=== PATIENT | female | born 1995 | race Caucasian/White ===

== ENCOUNTER → 2016-12-06 | Outpatient (CLI) | payer OTHER | END | disposition home or self-care (01) | LOC: LABWHC1 14:09 | PROVIDERS: ATTEND Obstetrics & Gynecology | DX: N91.2 Amenorrhea, unspecified (principal) | CPT/HCPCS: 36415; 84702 ==

== ENCOUNTER 2017-06-27 18:07 | Emergency (ER) | payer BC, OTHER ==
[2017-06-27 18:25] VITALS: BP 122/81; PULSE 97; RESP 18; TEMP 98.7
--- NOTE | 2017-06-27 18:39 | ED ---
ENT HPI - General Chief complaint: Dental/Oral Stated complaint: DENTAL PAIN Time Seen by Provider: 06/27/17 18:22 Source: patient, RN notes reviewed, old records reviewed Mode of arrival: ambulatory Limitations: no limitations - History of Present Illness Initial comments: 19-year-old female presents the ED chief complaint of bilateral lower dental pain and upper dental pain for the past 5 days. Patient has a history of severely poor dentition. She reports that her family never told her pressure teeth. She does have partial implant in her upper teeth. She does plan to see a dentist but has not had one in the area. She is a smoker. She denies any fever or chills. She denies any other associated symptoms. She reports she has been taking Motrin and Tylenol for pain but no relief. - Related Data Home Medications Medication Instructions Recorded Confirmed Dextroamphetamine/Amphetamine 20 mg PO DAILY 10/06/16 11/17/16 [Adderall] Ibuprofen [Motrin] 600 mg PO Q8HR PRN 10/06/16 11/17/16 clonazePAM [KlonoPIN] 0.5 mg PO HS 06/27/17 06/27/17 Previous Rx's Medication Instructions Recorded Penicillin V Potassium [Pen Vee K] 500 mg PO QID #40 tab 06/27/17 traMADol HCl [Ultram] 50 mg PO Q6H PRN #12 tab 06/27/17 Allergies Allergy/AdvReac Type Severity Reaction Status Date / Time resperdone AdvReac Unknown Uncoded 10/03/16 00:14 Review of Systems ROS Statement: Those systems with pertinent positive or pertinent negative responses have been documented in the HPI. ROS Other: All systems not noted in ROS Statement are negative. Past Medical History Past Medical History: No Reported History History of Any Multi-Drug Resistant Organisms: None Reported Past Surgical History: No Surgical Hx Reported Additional Past Surgical History / Comment(s): oral Past Anesthesia/Blood Transfusion Reactions: No Reported Reaction Past Psychological History: Anxiety, Bipolar Smoking Status: Current every day smoker Past Alcohol Use History: Rare Past Drug Use History: None Reported General Exam - General Exam Comments Initial Comments: 19-year-old female. No acute distress. Limitations: no limitations General appearance: alert, in no apparent distress Head exam: Present: atraumatic, normocephalic, normal inspection Eye exam: Present: normal appearance, PERRL, EOMI. Absent: scleral icterus, conjunctival injection, periorbital swelling ENT exam: Present: mucous membranes moist. Absent: normal exam, normal oropharynx (Patient has severely poor dentition. Multiple dental caries throughout all the teeth. She does have an implant for teeth 7 through 10.) Neck exam: Present: normal inspection. Absent: tenderness, meningismus, lymphadenopathy Respiratory exam: Present: normal lung sounds bilaterally. Absent: respiratory distress, wheezes, rales, rhonchi, stridor Cardiovascular Exam: Present: regular rate, normal rhythm, normal heart sounds. Absent: systolic murmur, diastolic murmur, rubs, gallop, clicks GI/Abdominal exam: Present: soft, normal bowel sounds. Absent: distended, tenderness, guarding, rebound, rigid Extremities exam: Present: normal inspection, full ROM, normal capillary refill. Absent: tenderness, pedal edema, joint swelling, calf tenderness Back exam: Present: normal inspection Neurological exam: Present: alert, oriented X3, CN II-XII intact Psychiatric exam: Present: normal affect, normal mood Skin exam: Present: warm, dry, intact, normal color. Absent: rash Course Vital Signs 06/27/17 18:21 Temperature 98.7 F Pulse Rate 97 Respiratory 18 Rate Blood Pressure 122/81 O2 Sat by Pulse 96 Oximetry Medical Decision Making - Medical Decision Making 19-year-old female presents the ED chief complaint of bilateral lower dental pain and upper dental pain for the past 5 days. Patient has a history of severely poor dentition. She reports that her family never told her pressure teeth. She does have partial implant in her upper teeth. Patient has severely poor dentition throughout her entire mouth. She has an implant on teeth #7 through 10. Discussed with patient reports a dental hygienist brushing her teeth and flossing. All her teeth are rotted decayed owing up with her dentist and will be given referrals for dentists around here. Patient agrees to treatment plan will comply. Return parameters were discussed. Disposition Clinical Impression: Dental caries, Pain, dental Disposition: HOME SELF-CARE Condition: Good Instructions: Dental Caries (ED), Toothache (ED) Additional Instructions: Patient advised to follow-up with dental clinic. Take antibiotics and recommended mouth rinses and brushing her teeth. [facility] [place] [email or web address] [address] [phone] (existing clients only) For new clients: [phone] 1st consult: $50 (includes Xrays) Usually 30% less then private dentist for visits after. [employer] Have to pay $50 for Xrays anmd rest is covered. [phone] Prescriptions: Penicillin V Potassium [Pen Vee K] 500 mg PO QID #40 tab traMADol HCl [Ultram] 50 mg PO Q6H PRN #12 tab PRN Reason: Pain Referrals: Tim Oh MD [Primary Care Provider] - 1-2 days Time of Disposition: 18:36
== END 2017-06-27 18:54 | disposition home or self-care (01) ==
LOC: EC 18:07
DX: K02.9 Dental caries, unspecified (principal); F31.9 Bipolar disorder, unspecified; F41.9 Anxiety disorder, unspecified; F17.200 Nicotine dependence, unspecified, uncomplicated; Z79.899 Other long term (current) drug therapy; Z88.8 Allergy status to other drugs, medicaments and biological substances
CPT/HCPCS: 99283

== ENCOUNTER 2017-08-15 10:04 | Emergency (ER) | payer BC, OTHER ==
[2017-08-15 10:08] VITALS: BP 127/77; PULSE 102; RESP 16; TEMP 96.9
--- NOTE | 2017-08-15 10:54 | ED ---
ENT HPI - General Chief complaint: Dental/Oral Stated complaint: Tooth Ache Time Seen by Provider: 08/15/17 10:17 Source: patient Mode of arrival: ambulatory Limitations: no limitations - History of Present Illness Initial comments: Years old female presented with right upper jaw dental pain and gum pain, it started at 10 PM last night she has ongoing dental issues for years she has lost multiple teeth and more than half of her teeth have major dental disease. She denies any fever no chills no trauma to the affected area at this point. Review of system is negative otherwise - Related Data Home Medications Medication Instructions Recorded Confirmed Dextroamphetamine/Amphetamine 20 mg PO DAILY 10/06/16 06/27/17 [Adderall] Ibuprofen [Motrin] 600 mg PO Q8HR PRN 10/06/16 06/27/17 clonazePAM [KlonoPIN] 0.5 mg PO HS 06/27/17 06/27/17 Previous Rx's Medication Instructions Recorded Penicillin V Potassium [Pen Vee K] 500 mg PO QID #40 tab 06/27/17 traMADol HCl [Ultram] 50 mg PO Q6H PRN #12 tab 06/27/17 Acetaminophen-Codeine 300-30mg 2 tab PO Q8H PRN #30 tablet 08/15/17 [Tylenol #3] Amoxicillin 500 mg PO Q8H #30 capsule 08/15/17 Allergies Allergy/AdvReac Type Severity Reaction Status Date / Time resperdone AdvReac Unknown Uncoded 08/15/17 10:08 Review of Systems ROS Statement: Those systems with pertinent positive or pertinent negative responses have been documented in the HPI. ROS Other: All systems not noted in ROS Statement are negative. Past Medical History Past Medical History: No Reported History History of Any Multi-Drug Resistant Organisms: None Reported Past Surgical History: No Surgical Hx Reported Additional Past Surgical History / Comment(s): oral Past Anesthesia/Blood Transfusion Reactions: No Reported Reaction Past Psychological History: Anxiety, Bipolar Smoking Status: Current every day smoker Past Alcohol Use History: Rare Past Drug Use History: None Reported General Exam - General Exam Comments Initial Comments: General: The patient is awake and alert, in no distress, and does not appear acutely ill. Skin: Skin is warm and dry and no rashes or lesions are noted. Eye: Pupils are equal, round and reactive to light, extra-ocular movements are intact; there is normal conjunctiva bilaterally. Ears, nose, mouth and throat: Examination of the gums and no noticed or inflammation of the gums at tooth #1 and 2 his right upper jaw in a more area, she is missing tooth 789 and 10 Neck: The neck is supple, there is no tenderness or JVD. Cardiovascular: There is a regular rate and rhythm. No murmur, rub or gallop is appreciated. Respiratory: To auscultation bilateral, no wheezing no rhonchi no distress respiratory levine noticed Gastrointestinal: Soft, non-distended, non-tender abdomen without masses or organomegaly noted. There is no rebound or guarding present. Bowel sounds are unremarkable. Back: There is no tenderness to palpation in the midline. There is no obvious deformity. Musculoskeletal: Normal ROM, no tenderness, There is no pedal edema. There is no calf tenderness or swelling. No cords were appreciated. Neurological: CN II-XII intact, Cranial nerves III through XII are intact. There are no obvious motor or sensory deficits. Coordination appears grossly intact. Speech is normal. Psychiatric: Cooperative, appropriate mood & affect, normal judgment. Limitations: no limitations Course Vital Signs 08/15/17 10:05 Temperature 96.9 F L Pulse Rate 102 H Respiratory 16 Rate Blood Pressure 127/77 O2 Sat by Pulse 100 Oximetry Disposition Clinical Impression: Pain, dental Disposition: HOME SELF-CARE Condition: Good Instructions: Toothache (ED) Additional Instructions: She is advised to see dentist as soon as possible Prescriptions: Acetaminophen-Codeine 300-30mg [Tylenol #3] 2 tab PO Q8H PRN #30 tablet PRN Reason: Pain Amoxicillin 500 mg PO Q8H #30 capsule Referrals: Tim Oh MD [Primary Care Provider] - 1-2 days
== END 2017-08-15 11:09 | disposition home or self-care (01) ==
LOC: EC 10:04
DX: K08.89 Other specified disorders of teeth and supporting structures (principal); K08.409 Partial loss of teeth, unspecified cause, unspecified class; F41.9 Anxiety disorder, unspecified; F17.200 Nicotine dependence, unspecified, uncomplicated; Z79.899 Other long term (current) drug therapy; Z88.8 Allergy status to other drugs, medicaments and biological substances; Z98.890 Other specified postprocedural states
CPT/HCPCS: 99282

== ENCOUNTER → 2017-09-02 | Outpatient (CLI) | payer BC, OTHER ==
--- NOTE | 2017-09-02 12:10 | XR ---
EXAMINATION TYPE: XR hand complete RT DATE OF EXAM: 09/02/2017 COMPARISON: NONE HISTORY: Pain TECHNIQUE: Three views are submitted. FINDINGS: The osseous structures are intact. The joint spaces are preserved and there is no acute fracture or dislocation. IMPRESSION: 1. No definite acute fracture or dislocation if symptoms persist, follow-up study in 7 to 10 days wo uld be suggested
== END | disposition home or self-care (01) ==
LOC: RADXRMAIN 11:45
PROVIDERS: ATTEND Family Medicine
DX: M79.641 Pain in right hand (principal)

== ENCOUNTER 2018-01-11 12:32 | Emergency (ER) | payer BC, OTHER ==
[2018-01-11 13:08] VITALS: TEMP 98.1
[2018-01-11] MEDS ORDERED: ACETAMINOPHEN TAB 325 MG TAB PO STA (13:25)
[2018-01-11] MEDS ORDERED: PENICILLIN VK 500MG STARTER 4 TAB BTL PO STA (13:25)
--- NOTE | 2018-01-11 13:25 | ED ---
ENT HPI - General Chief complaint: Dental/Oral Stated complaint: Tooth Ache/Facial Swelling Time Seen by Provider: 01/11/18 13:23 Source: patient Mode of arrival: ambulatory Limitations: no limitations - History of Present Illness Initial comments: 22-year-old female patient presents to the emergency department today for complaints of right upper dental pain. Patient states that she has had dental pain with the last 3 days. States that today she started have swelling to the right side of her face. Patient states that she has many cavities and broken teeth to the area. States that she needs to have her teeth removed however she is and they will not remove them. She states she has been taking Tylenol for the pain. She denies any fevers or chills. Denies any nausea or vomiting. Denies any difficulty swallowing. Patient denies any recent rash, shortness breath, chest pain, abdominal pain, diarrhea, constipation, back pain , numbness, tingling, dizziness, weakness, hematuria, dysuria, urinary urgency, urinary frequency, headache, visual changes, or any other complaints. Patient states she is 7 months and has been feeling normal movement. - Related Data Home Medications Medication Instructions Recorded Confirmed Dextroamphetamine/Amphetamine 20 mg PO DAILY 10/06/16 08/15/17 [Adderall] Ibuprofen [Motrin] 600 mg PO Q8HR PRN 10/06/16 08/15/17 clonazePAM [KlonoPIN] 0.5 mg PO HS 06/27/17 08/15/17 Anti-Depressant Unknown 1 tab PO DAILY 08/15/17 08/15/17 Aspirin 650 mg PO DAILY 08/15/17 08/15/17 Previous Rx's Medication Instructions Recorded Acetaminophen-Codeine 300-30mg 2 tab PO Q8H PRN #30 tablet 08/15/17 [Tylenol #3] Amoxicillin 500 mg PO Q8H #30 capsule 08/15/17 Penicillin V Potassium [Pen Vee K] 500 mg PO Q6H #40 tablet 01/11/18 Allergies Allergy/AdvReac Type Severity Reaction Status Date / Time risperidone Allergy Unknown Verified 01/11/18 13:09 Review of Systems ROS Statement: Those systems with pertinent positive or pertinent negative responses have been documented in the HPI. ROS Other: All systems not noted in ROS Statement are negative. Past Medical History Past Medical History: No Reported History History of Any Multi-Drug Resistant Organisms: None Reported Past Surgical History: No Surgical Hx Reported Additional Past Surgical History / Comment(s): oral Past Anesthesia/Blood Transfusion Reactions: No Reported Reaction Past Psychological History: Anxiety, Bipolar Smoking Status: Current every day smoker Past Alcohol Use History: Rare Past Drug Use History: None Reported General Exam Limitations: no limitations General appearance: alert, in no apparent distress, other (This is a well- developed, well-nourished adult female patient in no acute distress. Vital signs upon presentation are temperature 98.1F, pulse 109, respirations 20, blood pressure 118/78, pulse ox 98% on room air.) Eye exam: Present: normal appearance, PERRL, EOMI. Absent: scleral icterus, conjunctival injection, periorbital swelling ENT exam: Present: mucous membranes moist, other (Dentition is very poor with multiple cavities, right upper teeth are broken and did show extensive dental caries. There is surrounding gingival erythema, right facial swelling. No evidence of drainable abscess. No cervical lymphadenopathy.). Absent: normal exam Neck exam: Present: normal inspection. Absent: tenderness, meningismus, lymphadenopathy Respiratory exam: Present: normal lung sounds bilaterally. Absent: respiratory distress, wheezes, rales, rhonchi, stridor Cardiovascular Exam: Present: regular rate, normal rhythm, normal heart sounds. Absent: systolic murmur, diastolic murmur, rubs, gallop, clicks Course Vital Signs 01/11/18 13:06 Temperature 98.1 F Pulse Rate 109 H Respiratory 20 Rate Blood Pressure 118/78 O2 Sat by Pulse 98 Oximetry Medical Decision Making - Medical Decision Making 22-year-old female patient percents to the emergency department today with complaint of right upper dental pain and facial swelling. Physical examination did reveal extensive dental caries with gingival erythema. No evidence of drainable abscess. Patient is 7 months . heart tones were 157, performed by myself. Vital signs are stable. Patient be discharged with a prescription for penicillin. She is instructed to take Tylenol for pain control. She is instructed to do saltwater gargles and swishes. She is instructed to apply warm compresses to the outside of her face. She is instructed to follow-up with dentistry as soon as possible. She is instructed to return here immediately for any new, worsening, or concerning symptoms. She verbalizes understanding and agrees with this plan. Disposition Clinical Impression: Dental abscess Disposition: HOME SELF-CARE Condition: Good Instructions: Dental Abscess (ED), Toothache (ED) Additional Instructions: Swish with warm salt water. Use warm compresses to the outside of the face. Complete antibiotic prescription in full. Follow-up with the dentist as soon as possible. Return here immediately for any new, worsening, or concerning symptoms. Prescriptions: Penicillin V Potassium [Pen Vee K] 500 mg PO Q6H #40 tablet Referrals: None,Stated [Primary Care Provider] - 1-2 days Time of Disposition: 13:25
[2018-01-11 13:53] VITALS: BP 120/70; PULSE 92; RESP 18
== END 2018-01-11 13:55 | disposition home or self-care (01) ==
LOC: EC 12:32
DX: O99.613 Diseases of the digestive system complicating pregnancy, third trimester (principal); K04.7 Periapical abscess without sinus; K02.9 Dental caries, unspecified; O99.343 Other mental disorders complicating pregnancy, third trimester; F41.9 Anxiety disorder, unspecified; O99.333 Smoking (tobacco) complicating pregnancy, third trimester; F17.200 Nicotine dependence, unspecified, uncomplicated; Z79.82 Long term (current) use of aspirin; Z79.899 Other long term (current) drug therapy; Z88.8 Allergy status to other drugs, medicaments and biological substances; Z3A.00 Weeks of gestation of pregnancy not specified
CPT/HCPCS: 99283

== ENCOUNTER → 2018-01-22 | Outpatient (CLI) | payer BC, OTHER ==
[2018-01-22 17:35] LABS: HCT 34.2 % (34.0-46.0); HGB 10.7 gm/dL (11.4-16.0); MCH 30.6 pg (25.0-35.0); MCHC 31.2 g/dL (31.0-37.0); MCV 98.1 fL (80.0-100.0); Mean Platelet Volume 7.8; Platelet Count 265 k/uL (150-450); RBC 3.49 m/uL (3.80-5.40); RDW 12.1 % (11.5-15.5); WBC 17.7 k/uL (3.8-10.6)
== END | disposition home or self-care (01) ==
LOC: LABWHC1 16:02
PROVIDERS: ATTEND Obstetrics & Gynecology
DX: Z34.82 Encounter for supervision of other normal pregnancy, second trimester (principal); Z3A.00 Weeks of gestation of pregnancy not specified
CPT/HCPCS: 36415; 82950; 85027

== ENCOUNTER 2018-02-12 15:00 | Outpatient (CLI) | payer BC, OTHER ==
[2018-02-12 15:41] LABS: Appearance,Urine Clear (Clear); Bacteria,Urine Rare /hpf; Bilirubin,Urine Negative (Negative); Blood,Urine Negative (Negative); Color,Urine Yellow; Glucose,Urine (UA) Negative (Negative); Ketones,Urine Negative (Negative); Leukocyte Esterase,Urine Large (Negative); Mucus,Urine Few /hpf; Nitrite,Urine Negative (Negative); PH, Urine 6.5 (5.0-8.0); Protein,Urine Trace (Negative); RBC,Urine 1 /hpf (0-5); Specific Gravity,Urine 1.025 (1.001-1.035); Squamous Epithelial Cell,Urine 2 /hpf (0-4); WBC,Urine 3 /hpf (0-5)
[2018-02-12 16:27] VITALS: BP 129/74; PULSE 96; RESP 16; TEMP 97.8
--- NOTE | 2018-02-12 17:04 | P.MSEPDOC ---
Presenting Problems - Arrival Data Date of Arrival on Unit: 02/12/18 Time of Arrival on Unit: 15:00 Mode of Transport: Ambulatory - Complaint OB-Reason for Admission/Chief Complaint: Pain Comment: Suprapubic and flank pain Medical History - Information : 2 Para: 1 Term: 1 : 0 Abortions: Spontaneous or Elective: 0 Number of Living Children: 1 - Gestational Age Gestational Age by JENNIFFER (wks/days): 32 Weeks and 5 Days - History Complications: Smoker Review of Systems - Review of Systems Constitutional: No problems Breast: No problems ENT: No problems Cardiovascular: No problems Respiratory: No problems Gastrointestinal: No problems Genitourinary: Increased frequency Musculoskeletal: No problems Neurological: No problems Skin: No problems Vital Signs - Temperature Temperature: 97.8 F Temperature Source: Temporal Artery Scan - Pulse Right Sitting Brachial Pulse Rate: 96 Pulse Assessment Method: Pulse Oximetry - Respirations Respiratory Rate: 16 Oxygen Delivery Method: Room Air O2 Sat by Pulse Oximetry: 98 - Blood Pressure Right Arm Sitting Blood Pressure: 129/74 Blood Pressure Mean: 92 Blood Pressure Source: Automatic Cuff Medical Screen Scoring (Pre) - Cervical Exam Dilation: 0 cm = 0 Effacement: Exam Deferred Membranes: Intact - Uterine Contractions Frequency: N/A Duration: N/A Intensity: N/A - Maternal Vital Signs Maternal Temperature: N/A Maternal Blood Pressure: N/A Signs of Preeclampsia: N/A Maternal Respirations: N/A - Pain Assessment Pain Location and Character: Lower, Abdomen Pain Scale Used: Numeric (1 - 10) Pain Intensity: 8 Pain Management Goal: 2 Pain Description: *Acute, Cramping Pain Radiation Location: flank Pain Frequency: Constant Pain Duration: 48 Pain Duration Units: Hours Pain Behavior: Vocalization Pain Aggravating Factors: Activity - Maternal Trauma Maternal Trauma: N/A - Assessment Baseline FHR: 130 Heart Rate - NICHD Category: Category I (Normal) = 0 NST: Reactive Position: N/A - Total Score Total Score (Pre): 0 - Level of Risk Level of Risk: Low (0-5) Physician Notification (Pre) - Physician Notified Physician Notified Date: 02/12/18 Physician Notified Time: 16:05 Physician/Practitioner Notifed:: Chad Spoke With: Chad New Order Received: Yes - Notification Comment Comment: Spk c\Dr. Bonilla, advsd , 32 /, reactive NST, UA results, FFN collected, SVE closed/50/-2, firm. Not paulina. Order to edu pt on normal discomfort, comfort measures. D/C home, to follow up at next scheduled appt. Disposition - Disposition OB Disposition: Discharge to home, Written follow up instructions reviewed Discharge Date: 02/12/18 Discharge Time: 16:17 I agree with the RN Medical Screening Exam: Yes Risk & Benefit of care provided described in d/c instruction: Yes Diagnosis: RELATED CONDITIONS, UNSPECIFIED, THIRD TRIMESTER (pain consistent with movement)
== END 2018-02-12 16:17 | disposition home or self-care (01) ==
LOC: FBPOP 15:00
PROVIDERS: ATTEND Obstetrics & Gynecology
DX: O26.93 Pregnancy related conditions, unspecified, third trimester (principal); O99.333 Smoking (tobacco) complicating pregnancy, third trimester; Z3A.32 32 weeks gestation of pregnancy
CPT/HCPCS: 59025; 81001; 99213

== ENCOUNTER 2018-02-14 18:57 | Outpatient (CLI) | payer BC, OTHER ==
[2018-02-14 20:46] VITALS: BP 121/74; PULSE 92; RESP 16; TEMP 97.8
--- NOTE | 2018-02-18 08:47 | P.MSEPDOC ---
Presenting Problems - Arrival Data Date of Arrival on Unit: 02/14/18 Time of Arrival on Unit: 18:57 Mode of Transport: Wheelchair - Complaint OB-Reason for Admission/Chief Complaint: Pain Comment: pt states cramping throughout the last few days. states it became more painful today. c/o hip pain as well. Medical History - Information : 2 Para: 1 Term: 1 : 0 Abortions: Spontaneous or Elective: 0 Number of Living Children: 1 - Gestational Age Gestational Age by JENNIFFER (wks/days): 33 Weeks and 0 Days Review of Systems - Review of Systems Constitutional: No problems Breast: No problems ENT: No problems Cardiovascular: No problems Respiratory: No problems Gastrointestinal: No problems Genitourinary: No problems Musculoskeletal: No problems Neurological: No problems Skin: No problems Vital Signs - Temperature Temperature: 97.8 F Temperature Source: Oral - Pulse Right Sitting Brachial Pulse Rate: 92 Pulse Assessment Method: Automatic Cuff - Respirations Respiratory Rate: 16 Oxygen Delivery Method: Room Air O2 Sat by Pulse Oximetry: 98 - Blood Pressure Right Arm Sitting Blood Pressure: 121/74 Blood Pressure Mean: 89 Blood Pressure Source: Automatic Cuff Medical Screen Scoring (Pre) - Cervical Exam Dilation: 0 cm = 0 Membranes: Intact - Maternal Vital Signs Maternal Blood Pressure: N/A Signs of Preeclampsia: N/A Maternal Respirations: N/A - Pain Assessment Pain Location and Character: Medial, Abdomen Pain Scale Used: Numeric (1 - 10) Pain Intensity: 9 Pain Management Goal: 3 Pain Description: Cramping Pain Radiation Location: N/A Pain Frequency: Intermittent Pain Duration: 3 Pain Duration Units: Days Pain Behavior: Vocalization Pain Aggravating Factors: Activity, Contractions - Assessment Baseline FHR: 125 Heart Rate - NICHD Category: Category I (Normal) = 0 NST: Reactive - Total Score Total Score (Pre): 0 - Level of Risk Level of Risk: Low (0-5) Physician Notification (Pre) - Physician Notified Physician Notified Date: 02/14/18 Physician Notified Time: 19:50 Physician/Practitioner Notifed:: MARTIN Spoke With: MARTIN New Order Received: Yes - Notification Comment Comment: collect FFN, check cervix, if closed, d/c home. If dilated, send FFN Disposition - Disposition OB Disposition: Discharge to home Discharge Date: 02/14/18 Discharge Time: 20:10 I agree with the RN Medical Screening Exam: Yes Risk & Benefit of care provided described in d/c instruction: Yes Diagnosis: PAIN IN LEFT HIP ( related)
== END 2018-02-14 20:10 | disposition home or self-care (01) ==
LOC: FBPOP 18:57
PROVIDERS: ATTEND Obstetrics & Gynecology
DX: O26.893 Other specified pregnancy related conditions, third trimester (principal); M25.552 Pain in left hip; Z3A.33 33 weeks gestation of pregnancy
CPT/HCPCS: 59025; 99213

== ENCOUNTER 2018-03-03 19:10 | Outpatient (CLI) | payer BC, OTHER ==
[2018-03-03 19:41] VITALS: BP 115/73; PULSE 96; RESP 16; TEMP 98
--- NOTE | 2018-03-03 20:41 | P.MSEPDOC ---
Presenting Problems - Arrival Data Date of Arrival on Unit: 03/03/18 Time of Arrival on Unit: 19:10 Mode of Transport: Ambulatory - Complaint OB-Reason for Admission/Chief Complaint: Rule Out SROM, Other Comment: leaking of clear/yellow fluid since yesterday, abdominal cramping for two days, chest heaviness for a week. Medical History - Information : 2 Para: 1 Term: 1 : 0 Abortions: Spontaneous or Elective: 0 Number of Living Children: 1 - Gestational Age Gestational Age by JENNIFFER (wks/days): 35 Weeks and 3 Days - History Complications: Prior Review of Systems - Review of Systems Constitutional: No problems Breast: No problems ENT: No problems Cardiovascular: Chest pain Respiratory: No problems Gastrointestinal: No problems Genitourinary: No problems Musculoskeletal: No problems Neurological: No problems Skin: No problems Vital Signs - Temperature Temperature: 98.0 F Temperature Source: Temporal Artery Scan - Pulse Right Sitting Brachial Pulse Rate: 96 Pulse Assessment Method: Automatic Cuff - Respirations Respiratory Rate: 16 Oxygen Delivery Method: Room Air O2 Sat by Pulse Oximetry: 97 - Blood Pressure Right Arm Sitting Blood Pressure: 115/73 Blood Pressure Mean: 87 Blood Pressure Source: Automatic Cuff Medical Screen Scoring (Pre) - Cervical Exam Dilation: 0 cm = 0 Membranes: Intact - Uterine Contractions Frequency: N/A Duration: N/A Intensity: N/A - Maternal Vital Signs Maternal Temperature: N/A Maternal Blood Pressure: N/A Signs of Preeclampsia: N/A Maternal Respirations: N/A - Pain Assessment Pain Location and Character: Lower, Abdomen Pain Scale Used: Numeric (1 - 10) Pain Intensity: 8 Pain Management Goal: 3 Pain Description: Cramping Pain Radiation Location: n/a Pain Frequency: Intermittent Pain Duration: 2 Pain Duration Units: Days Pain Behavior: None Exhibited, Vocalization Pain Aggravating Factors: Activity - Assessment Baseline FHR: 130 Heart Rate - NICHD Category: Category I (Normal) = 0 NST: Reactive Position: N/A Station: N/A - Total Score Total Score (Pre): 0 - Level of Risk Level of Risk: Low (0-5) Physician Notification (Pre) - Physician Notified Physician Notified Date: 03/03/18 Physician/Practitioner Notifed:: freddy Spoke With: freddy Physician Notification (Post) - Physician Notified Physician Notified Date: 03/03/18 Physician Notified Time: 19:47 Physician/Practitioner Notified:: freddy Spoke With: freddy New Order Received: Yes - Notification Comment Comment: d/c pt home. Disposition - Disposition OB Disposition: Discharge to home Discharge Date: 03/03/18 Discharge Time: 19:51 I agree with the RN Medical Screening Exam: Yes Risk & Benefit of care provided described in d/c instruction: Yes Diagnosis: PAIN, UNSPECIFIED
== END 2018-03-03 19:51 | disposition home or self-care (01) ==
LOC: FBPOP 19:10
PROVIDERS: ATTEND Obstetrics & Gynecology
DX: O99.89 Other specified diseases and conditions complicating pregnancy, childbirth and the puerperium (principal); R10.9 Unspecified abdominal pain; Z3A.35 35 weeks gestation of pregnancy
CPT/HCPCS: 59025; 84112; 99213

== ENCOUNTER 2018-03-05 17:53 | Emergency (ER) | payer BC, OTHER ==
[2018-03-05 18:17] VITALS: BP 127/83; PULSE 69; RESP 18; TEMP 98
--- NOTE | 2018-03-05 18:28 | ED ---
General Adult HPI - General Chief complaint: Dental/Oral Stated complaint: Toothache Time Seen by Provider: 03/05/18 18:18 Source: patient, RN notes reviewed Mode of arrival: ambulatory Limitations: no limitations - History of Present Illness Initial comments: Patient 22-year-old female presented to the emergency room today with chief complaint of increased dental pain. Patient does not that she's 36 weeks . She denies any abdominal pain, vaginal bleeding or discharge. Patient states that she noticed some pain to the right upper gumline started yesterday. She does admit some pain locally around tooth #7. Patient denies any other complaints or symptoms at this time. Patient denies any recent fever, chills, shortness of breath, chest pain, back pain, abdominal pain, headaches or visual changes, or any other complaints. - Related Data Home Medications Medication Instructions Recorded Confirmed Pnv,Calcium 72/Iron/Folic Acid 1 tab PO DAILY 02/12/18 03/03/18 [ Plus Tablet] Previous Rx's Medication Instructions Recorded Penicillin V Potassium [Pen Vee K] 500 mg PO QID #40 tablet 03/05/18 Allergies Allergy/AdvReac Type Severity Reaction Status Date / Time risperidone Allergy Unknown Verified 03/05/18 18:17 Review of Systems ROS Statement: Those systems with pertinent positive or pertinent negative responses have been documented in the HPI. ROS Other: All systems not noted in ROS Statement are negative. Past Medical History Past Medical History: No Reported History History of Any Multi-Drug Resistant Organisms: None Reported Past Surgical History: No Surgical Hx Reported Additional Past Surgical History / Comment(s): oral Past Anesthesia/Blood Transfusion Reactions: No Reported Reaction Past Psychological History: Anxiety, Bipolar Smoking Status: Current every day smoker General Exam - General Exam Comments Initial Comments: General: The patient is awake and alert, in no distress, and does not appear acutely ill. Eye: Pupils are equal, round and reactive to light, extra-ocular movements are intact. No nystagmus. There is normal conjunctiva bilaterally. No signs of icterus. Ears, nose, mouth and throat: There are moist mucous membranes and no oral lesions. She does have missing tooth #8 #9. She is locally tender in the gumline above tooth #7. No sign of abscess. Some swelling to the gumline. No drainage or discharge. Neck: The neck is supple, there is no tenderness or JVD. Musculoskeletal: Normal ROM, no tenderness. Strength 5/5. Sensation intact. Pulses equal bilaterally 2+. Neurological: A&O x 3. CN II-XII intact, There are no obvious motor or sensory deficits. Coordination appears grossly intact. Speech is normal. Skin: Skin is warm and dry and no rashes or lesions are noted. Psychiatric: Cooperative, appropriate mood & affect, normal judgment. Limitations: no limitations Course Vital Signs 03/05/18 18:15 Temperature 98 F Pulse Rate 69 Respiratory 18 Rate Blood Pressure 127/83 O2 Sat by Pulse 98 Oximetry Medical Decision Making - Medical Decision Making She'll be started on antibiotics of penicillin. Patient is advised follow-up with her dentist. Advised return if any symptoms increase worsen. Disposition Clinical Impression: Dental abscess Disposition: HOME SELF-CARE Condition: Good Instructions: Dental Abscess (ED) Additional Instructions: Please use medication as discussed. Please follow-up with dentist/family doctor in the next 2 days of symptoms have not improved. Please return to emergency room if the symptoms increase or worsen or for any other concerns. Prescriptions: Penicillin V Potassium [Pen Vee K] 500 mg PO QID #40 tablet Referrals: None,Stated [Primary Care Provider] - 1-2 days Time of Disposition: 18:27
--- NOTE | 2018-03-06 06:18 | CDI ---
Documentation Clarification OP Dear Ayan Us PA-C Please provide proper documentation about . Thank you, Humberto Gates [employer] Quality Inspector If you have any questions, please contact Com[employer] at [phone] [facility]
== END 2018-03-05 18:36 | disposition home or self-care (01) ==
LOC: EC 17:53
DX: O99.613 Diseases of the digestive system complicating pregnancy, third trimester (principal); K04.7 Periapical abscess without sinus; O99.333 Smoking (tobacco) complicating pregnancy, third trimester; F17.200 Nicotine dependence, unspecified, uncomplicated; Z3A.36 36 weeks gestation of pregnancy; Z88.8 Allergy status to other drugs, medicaments and biological substances
CPT/HCPCS: 99282

== ENCOUNTER 2018-03-13 14:55 | Outpatient (CLI) | payer BC, OTHER ==
[2018-03-13 17:06] VITALS: BP 126/80; PULSE 121; RESP 18; TEMP 97.9
--- NOTE | 2018-03-17 08:39 | P.MSEPDOC ---
Presenting Problems - Arrival Data Date of Arrival on Unit: 03/13/18 Time of Arrival on Unit: 14:55 Mode of Transport: Wheelchair - Complaint OB-Reason for Admission/Chief Complaint: Possible Onset of Labor Medical History - Information : 2 Para: 1 Term: 1 : 0 Abortions: Spontaneous or Elective: 0 Number of Living Children: 1 - Gestational Age Gestational Age by JENNIFFER (wks/days): 36 Weeks and 6 Days - History Complications: Prior Review of Systems - Review of Systems Constitutional: No problems Breast: No problems ENT: No problems Cardiovascular: No problems Respiratory: No problems Gastrointestinal: No problems Genitourinary: No problems Musculoskeletal: No problems Neurological: No problems Skin: No problems Vital Signs - Temperature Temperature: 97.9 F Temperature Source: Temporal Artery Scan - Pulse Brachial Pulse Rate: 121 Pulse Assessment Method: Automatic Cuff - Respirations Respiratory Rate: 18 Oxygen Delivery Method: Room Air - Blood Pressure Right Arm Blood Pressure: 126/80 Blood Pressure Mean: 95 Blood Pressure Source: Automatic Cuff Medical Screen Scoring (Pre) - Cervical Exam Dilation: 0 cm = 0 Membranes: Intact - Uterine Contractions Frequency: N/A - Maternal Vital Signs Maternal Temperature: N/A Signs of Preeclampsia: N/A Maternal Respirations: N/A - Pain Assessment Pain Location and Character: Abdomen Pain Scale Used: Numeric (1 - 10) Pain Intensity: 9 Pain Description: Cramping Pain Frequency: Intermittent Pain Behavior: Vocalization - Assessment Baseline FHR: 135 Heart Rate - NICHD Category: Category I (Normal) = 0 NST: Reactive - Total Score Total Score (Pre): 0 Physician Notification (Pre) - Physician Notified Physician Notified Date: 03/13/18 Physician Notified Time: 16:05 Physician/Practitioner Notifed:: dr dimas Disposition - Disposition OB Disposition: Triage, Discharge to home, Written follow up instructions reviewed Discharge Date: 03/13/18 Discharge Time: 16:25 I agree with the RN Medical Screening Exam: Yes Risk & Benefit of care provided described in d/c instruction: Yes Diagnosis: FALSE LABOR BEFORE 37 COMPLETED WEEKS OF GEST, THIRD TRI
== END 2018-03-13 16:25 | disposition home or self-care (01) ==
LOC: FBPOP 14:55
PROVIDERS: ATTEND Obstetrics & Gynecology
DX: O47.03 False labor before 37 completed weeks of gestation, third trimester (principal); Z3A.36 36 weeks gestation of pregnancy
CPT/HCPCS: 59025; 99213

== ENCOUNTER 2018-03-31 06:02 | Inpatient (IN) | payer BC, OTHER ==
[2018-03-31] MEDS ORDERED: METHYLERGONOVINE 0.2 MG/ML 1 ML AMP IM PRN (06:17)
[2018-03-31] MEDS ORDERED: LIDOCAINE 1% (PF) 10 MG/ML (30 ML SDV) SQ PRN (06:17)
[2018-03-31] MEDS ORDERED: TERBUTALINE 1 MG/ML VIAL SQ PRN (06:17)
[2018-03-31] MEDS ORDERED: ceFAZolin IN SWFI 2 GM/20 ML SYRINGE IVP ONE (06:17)
[2018-03-31] MEDS ORDERED: CARBOPROST TROMETHAMINE 250 MCG/ML 1 ML AMP IM PRN (06:17)
[2018-03-31] MEDS ORDERED: OXYTOCIN 10 UNIT/ML 1 ML VIAL IM PRN (06:17)
[2018-03-31 06:27] LABS: Basophils % (A) 0 %; Eosinophils # (A) 0.3 k/uL (0-0.7); Eosinophils % (A) 2 %; HCT 36.3 % (34.0-46.0); HGB 12.3 gm/dL (11.4-16.0); Lymphocytes # (A) 3.1 k/uL (1.0-4.8); Lymphocytes % (A) 24 %; MCH 31.6 pg (25.0-35.0); MCV 92.9 fL (80.0-100.0); Mean Platelet Volume 8.6; Monocytes # (A) 0.4 k/uL (0-1.0); Monocytes % (A) 3 %; Neutrophils # (A) 9.1 k/uL (1.3-7.7); Neutrophils % (A) 70 %; Platelet Count 228 k/uL (150-450); RBC 3.91 m/uL (3.80-5.40); RDW 12.1 % (11.5-15.5); WBC 13.1 k/uL (3.8-10.6)
[2018-03-31 06:30] VITALS: BMI 26.9
[2018-03-31] MEDS: LACTATED RINGERS 1,000 ML IV SCH ×3 (06:37→20:17)
[2018-03-31] MEDS ORDERED: CITRIC ACID-SODIUM CITRATE 15 ML CUP PO ONE (07:32)
[2018-03-31] MEDS ORDERED: MORPHINE SULFATE (PF) 0.3 MG/0.3 ML SYR ONE (08:00)
[2018-03-31] MEDS ORDERED: KETOROLAC 30 MG/ML 1 ML VIAL ONE (08:00)
[2018-03-31] MEDS ORDERED: DEXAMETHASONE SOD PHOS (MDV) 100 MG/10 ML VIAL ONE (08:00)
[2018-03-31] MEDS ORDERED: OXYTOCIN 10 UNIT/ML 1 ML VIAL ONE (08:00)
[2018-03-31] MEDS ORDERED: NALBUPHINE 10 MG/ML AMPUL ONE (08:00)
[2018-03-31] MEDS ORDERED: ONDANSETRON 4 MG/2 ML VIAL ONE (08:00)
[2018-03-31] MEDS ORDERED: NALOXONE 0.4 MG/ML 1 ML VIAL IV PRN ×2 (08:17→08:43)
[2018-03-31] MEDS ORDERED: NALBUPHINE 10 MG/ML AMPUL IV PRN (08:17)
[2018-03-31] MEDS ORDERED: MORPHINE SULFATE 4 MG/ML SYRINGE IVP PRN (08:17)
[2018-03-31] MEDS ORDERED: diphenhydrAMINE 50 MG/ML 1 ML VIAL IVP PRN ×3 (08:17→08:43)
[2018-03-31] MEDS ORDERED: ONDANSETRON 4 MG/2 ML VIAL IVP PRN ×2 (08:17→08:43)
[2018-03-31] MEDS ORDERED: HYDROcodone/APAP 7.5-325MG 1 EACH TAB PO PRN (08:43)
[2018-03-31] MEDS ORDERED: diphenhydrAMINE 50 MG CAP PO PRN (08:43)
[2018-03-31] MEDS ORDERED: ACETAMINOPHEN TAB 325 MG TAB PO PRN (08:43)
[2018-03-31] MEDS ORDERED: HYDROcodone/APAP 5-325MG 1 EACH TAB PO PRN (08:43)
[2018-03-31] MEDS ORDERED: METOCLOPRAMIDE 5 MG/ML 2 ML VIAL IVP PRN (08:43)
[2018-03-31] MEDS ORDERED: ZOLPIDEM 5 MG TAB PO PRN (08:43)
[2018-03-31] MEDS ORDERED: diphenhydrAMINE 25 MG CAP PO PRN (08:43)
--- NOTE | 2018-03-31 08:46 | P.HPOB ---
History of Present Illness H&P Date: 03/31/18 Chief Complaint: Intrauterine at term with prior section Patient is a 22-year-old at 39 weeks gestation dated by 24 week ultrasound. Noted at her late visit at 21 weeks that she was actually 3 weeks ahead this ultrasound was verified at 32 weeks. Her Precis course otherwise was unremarkable and she did very well. Pertinent labs did include O + blood type, Rh antibody was negative, rubella immune, hepatitis B surface antigen/RPR/GBS all negative. She did pass her 1 hour Glucola screen. Past Medical History Past Medical History: No Reported History History of Any Multi-Drug Resistant Organisms: None Reported Past Surgical History: No Surgical Hx Reported Additional Past Surgical History / Comment(s): oral Past Anesthesia/Blood Transfusion Reactions: No Reported Reaction Past Psychological History: Anxiety, Bipolar Smoking Status: Current every day smoker Past Alcohol Use History: Rare Past Drug Use History: None Reported - Past Family History Mother Family Medical History: Congestive Heart Failure (CHF), CVA/TIA, Myocardial Infarction ([place]) Father Family Medical History: Hypertension Medications and Allergies Home Medications Medication Instructions Recorded Confirmed Type Pnv,Calcium 72/Iron/Folic Acid 1 tab PO DAILY 02/12/18 03/31/18 History [ Plus Tablet] Allergies Allergy/AdvReac Type Severity Reaction Status Date / Time risperidone Allergy Unknown Verified 03/31/18 06:15 Exam Osteopathic Statement: *. No significant issues noted on an osteopathic structural exam other than those noted in the History and Physical/Consult. - Vital Signs Vital signs: Vital Signs Temp Pulse Resp BP Pulse Ox 03/31/18 06:14 96.8 F L 84 16 127/83 96 Intake and Output 03/30/18 03/31/18 03/31/18 22:59 06:59 14:59 Other: Weight 71.214 kg - OBG Physical Exam Breast: both: normal (no masses) Abdomen: bowel sounds normal, no diffuse tenderness, no bruit present, no guarding noted, no hepatomegaly, no splenomegaly, no mass Vulva: both: normal Vagina: normal moisture, no discharge Cervix: no lesion, no discharge Uterus: normal size, normal contour Adnexa: both: normal Anus/Rectum: normal perianal skin, no rectal mass, no hemorrhoids, heme negative Results Result Diagrams: 03/31/18 06:21 Abnormal Lab Results - Last 24 Hours (Table) 03/31/18 Range/Units 06:21 WBC 13.1 H (3.8-10.6) k/uL Neutrophils # 9.1 H (1.3-7.7) k/uL Assessment and Plan Assessment: Intrauterine at term with prior section
--- NOTE | 2018-03-31 08:49 | P.OP ---
Date of Procedure: 03/31/18 Preoperative Diagnosis: Intrauterine at term: Prior section Postoperative Diagnosis: Same Procedure(s) Performed: Repeat low transverse section Anesthesia: spinal Surgeon: Hank Bonilla Band Instrument Repairer #1: Justina Macario Estimated Blood Loss (ml): 400 IV fluids (ml): 600 Urine output (ml): 125 Pathology: other (Placenta) Condition: stable Disposition: floor Operative Findings: Male scores of 8 and 9 at one and 5 minutes respectively and the weight was 5 lbs. 13 oz. Description of Procedure: Patient was taken to the operating suite where spinal anesthetic was found be adequate. She was prepped and draped in the normal sterile fashion and placed in dorsal supine position with leftward tilt. Initially a Pfannenstiel skin incision was made and this incision was then carried through to underlying layer of the fascia with a second knife. Fascia was then nicked in midline and this opening was extended laterally with Garcia scissors. Superior and inferior aspect of this incision were then grasped tented up and bluntly and sharply dissected off the rectus muscles. Rectus muscles were then divided in the midline and sharp dissection through the peritoneum was made. This opening was then extended superiorly and inferiorly with good visualization of both bowel bladder. Bladder blade was then placed and the bladder flap identified and entered with Metzenbaum scissors and carried across face uterus with Metzenbaum scissors and bluntly dissected out of the operative field. Knife was then used to incise uterus this opening was then fully opened with hemostat and then extended bluntly. Head was then atraumatically delivered and mouth nares were bulb suctioned. Shoulders were easily delivered followed by the remainder the baby umbilical cord was then clamped cut usual fashion an nursery personnel was present to assume care. Placenta was then delivered intact and Pitocin was added to the IV. Uterus was then exteriorized cleared of clots and debris and closed in 2 layers with 0 Vicryl suture. Blood and debris was then suctioned from the posterior cul-de-sac and uterus was reinserted into the abdomen. Peritoneal layer was then closed [place] suture fascial layer was closed with 0 Vicryl suture a layer of 3-0 Vicryl was placed in the subcuticular tissues and the skin was closed with 3-0 Vicryl. Sponge, lap, needle counts were all correct 2. Patient was then taken to the recovery room in stable and satisfactory condition.
[2018-03-31] MEDS: KETOROLAC 30 MG/ML 1 ML VIAL IVP SCH ×2 (14:33→23:45)
[2018-03-31] MEDS: SENNOSIDES-DOCUSATE SODIUM 1 EACH TAB PO SCH (20:18)
[2018-04-01] MEDS: LACTATED RINGERS 1,000 ML IV SCH (00:54)
[2018-04-01] MEDS: IBUPROFEN 600 MG TAB PO PRN ×4 (06:31→23:35)
[2018-04-01] MEDS: KETOROLAC 30 MG/ML 1 ML VIAL IVP SCH (06:39)
--- NOTE | 2018-04-01 07:45 | P.PNOBGPC ---
Subjective - Subjective Principal diagnosis: Postop day 1 Interval history: Doing very well. Involuting, voiding, and she is tolerating her diet. Patient reports: Reports appetite normal, Reports voiding normally, Reports pain well controlled, Reports ambulating normally : in NICU Objective - Vital Signs Latest vital signs: Vital Signs Temp Pulse Resp BP Pulse Ox 04/01/18 05:57 16 97 04/01/18 04:00 98.5 F 77 16 124/74 98 04/01/18 02:00 16 97 04/01/18 00:00 98.1 F 82 16 136/85 97 03/31/18 22:00 77 14 97 03/31/18 20:00 98.1 F 83 16 125/72 98 03/31/18 18:25 16 03/31/18 17:00 16 03/31/18 16:00 98.1 F 71 16 128/94 97 03/31/18 15:00 98.1 F 71 16 128/94 97 03/31/18 13:17 99 03/31/18 13:00 16 99 03/31/18 12:00 97.7 F 64 16 133/90 99 03/31/18 11:17 16 99 03/31/18 10:45 73 16 123/86 99 03/31/18 10:15 59 L 16 124/84 99 03/31/18 09:45 71 16 125/89 98 03/31/18 09:30 73 16 128/89 99 03/31/18 09:17 16 98 03/31/18 09:15 67 16 128/83 98 03/31/18 09:00 71 16 132/82 98 03/31/18 08:45 97.4 F L 81 16 120/73 97 03/31/18 08:17 16 Intake and Output 03/31/18 04/01/18 04/01/18 22:59 06:59 14:59 Intake Total 2000 Output Total 3000 Balance -1000 Intake: Intake, IV Titration 1000 Amount Lactated Ringers 1,000 ml 1000 @ 125 mls/hr IV .Q8H [facility] Rx#:[id number] Oral 1000 Output: Urine 3000 Uretheral (Jacobs) 1250 Other: # Voids 1 1 - Exam Lungs: bilateral: normal Chest: Normal S1, Normal S2 Extremities: Present: normal Abdomen: Present: normal appearance, soft. Absent: distention, tenderness Incision: Present: normal, dry, intact Uterus: Present: normal, firm
[2018-04-01 08:01] LABS: Basophils % (A) 0 %; Eosinophils # (A) 0.3 k/uL (0-0.7); Eosinophils % (A) 2 %; HCT 28.6 % (34.0-46.0); HGB 10.4 gm/dL (11.4-16.0); Lymphocytes # (A) 3.3 k/uL (1.0-4.8); Lymphocytes % (A) 21 %; MCH 33.9 pg (25.0-35.0); MCHC 36.3 g/dL (31.0-37.0); MCV 93.3 fL (80.0-100.0); Mean Platelet Volume 9.2; Monocytes # (A) 0.8 k/uL (0-1.0); Monocytes % (A) 5 %; Neutrophils # (A) 11.1 k/uL (1.3-7.7); Neutrophils % (A) 71 %; Platelet Count 226 k/uL (150-450); RBC 3.07 m/uL (3.80-5.40); RDW 11.8 % (11.5-15.5); WBC 15.7 k/uL (3.8-10.6)
[2018-04-01] MEDS: SENNOSIDES-DOCUSATE SODIUM 1 EACH TAB PO SCH ×2 (10:06→20:22)
--- NOTE | 2018-04-01 13:32 | P.PN ---
Progress Note - Text Progress Note Date: 04/01/18 Postoperative day 1 status post section under spinal anesthesia, and intrathecal morphine given for postoperative analgesia, patient doing well, there is no paresthesia related complications, further management as per her primary team. promote early emulation.
[2018-04-01] MEDS ORDERED: NICOTINE 14MG/24HR PATCH TRANSDERM STA (20:50)
--- NOTE | 2018-04-02 07:34 | P.DS ---
Providers Date of admission: 03/31/18 06:02 Expected date of discharge: 04/02/18 Attending physician: Hank Bonilla Primary care physician: Stated None Hospital Course: Patient is doing overall well. She is ambulating, voiding, and she is tolerating her diet. She voices no complaints. Vital signs are stable and afebrile. Heart regular, lungs clear, extremities are without pain. Assessment postop day 2. Plan discharged home follow up with me in 1 week. Prescription for Sweet Water and Motrin has been provided and she will see me again in 1 week. All other questions are answered for her at this time and she is stable for discharge this time. Patient Condition at Discharge: Good Plan - Discharge Summary New Discharge Prescriptions: New HYDROcodone/APAP 5-325MG [Sweet Water 5-325] 1 tab PO Q4HR PRN #20 tab PRN Reason: Pain Ibuprofen [Motrin] 600 mg PO Q6HR PRN #30 tab PRN Reason: Pain No Action Pnv,Calcium 72/Iron/Folic Acid [ Plus Tablet] 1 tab PO DAILY Discharge Medication List Pnv,Calcium 72/Iron/Folic Acid [ Plus Tablet] 1 tab PO DAILY 02/12/18 [ History] HYDROcodone/APAP 5-325MG [Sweet Water 5-325] 1 tab PO Q4HR PRN #20 tab 04/02/18 [Rx] Ibuprofen [Motrin] 600 mg PO Q6HR PRN #30 tab 04/02/18 [Rx] Follow up Appointment(s)/Referral(s): Hank Bonilla DO [Doctor of Osteopathic Medicine] - 1 Week Activity/Diet/Wound Care/Special Instructions: No heavy lifting, limit stairs and driving and pelvic rest. If any high temperatures, heavy bleeding, or severe pain call my office Discharge Disposition: HOME SELF-CARE
[2018-04-02] MEDS: SENNOSIDES-DOCUSATE SODIUM 1 EACH TAB PO SCH (08:00)
[2018-04-02 13:40] VITALS: BP 134/78; PULSE 92; RESP 18; TEMP 98.2
== END 2018-04-02 11:45 | disposition home or self-care (01) | DRG 766 ==
LOC: 4FBP 06:02
PROVIDERS: ADMIT Obstetrics & Gynecology; ATTEND Obstetrics & Gynecology
PROC: 10D00Z1 Extraction of Products of Conception, Low, Open Approach (ICD-10-PCS; principal; 2018-03-31 08:00)
DX: O34.211 Maternal care for low transverse scar from previous cesarean delivery (principal); Z37.0 Single live birth; F17.200 Nicotine dependence, unspecified, uncomplicated; Z3A.39 39 weeks gestation of pregnancy; O99.334 Smoking (tobacco) complicating childbirth; Z88.8 Allergy status to other drugs, medicaments and biological substances
CPT/HCPCS: 85025; 88307

== ENCOUNTER 2018-08-27 18:39 | Emergency (ER) | payer BC, OTHER ==
[2018-08-27 18:49] VITALS: BP 123/86; PULSE 86; RESP 18; TEMP 98.2
--- NOTE | 2018-08-27 19:05 | ED ---
Upper Extremity HPI - General Chief Complaint: Extremity Injury, Upper Stated Complaint: rt hand injury Time Seen by Provider: 08/27/18 18:54 Source: patient, RN notes reviewed Mode of arrival: ambulatory Limitations: no limitations - History of Present Illness Initial Comments: 22-year-old female presents emergency Department with chief complaint of Right hand injury. Patient states that she tripped over a toy striking a wall pain. Patient states that she has pain from the MCP region to the distal tip of her fifth digit. She is [id number]. Patient states she is able to flex her finger but causes discomfort. - Related Data Home Medications Medication Instructions Recorded Confirmed Pnv,Calcium 72/Iron/Folic Acid 1 tab PO DAILY 02/12/18 03/31/18 [ Plus Tablet] Previous Rx's Medication Instructions Recorded HYDROcodone/APAP 5-325MG [[place] 1 tab PO Q4HR PRN #20 tab 04/02/18 5-325] Ibuprofen [Motrin] 600 mg PO Q6HR PRN #30 tab 04/02/18 Allergies Allergy/AdvReac Type Severity Reaction Status Date / Time risperidone Allergy Unknown Verified 08/27/18 18:49 Review of Systems ROS Statement: Those systems with pertinent positive or pertinent negative responses have been documented in the HPI. ROS Other: All systems not noted in ROS Statement are negative. Past Medical History Past Medical History: No Reported History Additional Past Medical History / Comment(s): migraines History of Any Multi-Drug Resistant Organisms: None Reported Past Surgical History: Section Additional Past Surgical History / Comment(s): oral Past Anesthesia/Blood Transfusion Reactions: No Reported Reaction Past Psychological History: Anxiety, Bipolar Smoking Status: Current every day smoker Past Alcohol Use History: None Reported Past Drug Use History: None Reported - Past Family History Mother Family Medical History: Congestive Heart Failure (CHF), CVA/TIA, Myocardial Infarction ([place]) Father Family Medical History: Hypertension General Exam Limitations: no limitations General appearance: alert, in no apparent distress Head exam: Present: atraumatic, normocephalic, normal inspection Respiratory exam: Present: normal lung sounds bilaterally. Absent: respiratory distress, wheezes, rales, rhonchi, stridor Cardiovascular Exam: Present: regular rate, normal rhythm, normal heart sounds. Absent: systolic murmur, diastolic murmur, rubs, gallop, clicks Extremities exam: Present: other (Right hand there is ecchymosis noted from the MCP to the PIP there is no obvious deformity patient has decreased range of motion second pain there is tenderness with palpation over the MCP) Skin exam: Present: warm, dry, intact, normal color. Absent: rash Course Vital Signs 08/27/18 18:46 Temperature 98.2 F Pulse Rate 86 Respiratory 18 Rate Blood Pressure 123/86 O2 Sat by Pulse 99 Oximetry Medical Decision Making - Medical Decision Making 22-year-old female presented emergency department for right hand fifth digit injury. X-rays were obtained no acute fracture. Patient has a right finger sprain. Patient was given a finger splint for pain control and will take over- the-counter Tylenol Motrin. Return parameters were discussed. Disposition Clinical Impression: Finger sprain Disposition: HOME SELF-CARE Condition: Stable Instructions: Finger Sprain (ED) Additional Instructions: Please return to the Emergency Department if symptoms worsen or any other concerns. Is patient prescribed a controlled substance at d/c from ED?: No Referrals: Ramya Brown MD [Primary Care Provider] - 1-2 days Time of Disposition: 19:22
--- NOTE | 2018-08-27 19:47 | XR ---
EXAMINATION TYPE: XR hand complete RT DATE OF EXAM: 08/27/2018 COMPARISON: 09/02/2017 HISTORY: Pain middle finger TECHNIQUE: 3 views FINDINGS: I see no fracture nor dislocation. Joint spaces are normal. Metacarpals are intact. IMPRESSION: Mild soft tissue swelling around the PIP joint of the little finger. No fracture.
== END 2018-08-27 19:28 | disposition home or self-care (01) ==
LOC: EC 18:39
DX: S63.614A Unspecified sprain of right ring finger, initial encounter (principal); F17.200 Nicotine dependence, unspecified, uncomplicated; Z88.8 Allergy status to other drugs, medicaments and biological substances; W22.8XXA Striking against or struck by other objects, initial encounter; Y92.009 Unspecified place in unspecified non-institutional (private) residence as the place of occurrence of the external cause
CPT/HCPCS: 99283

== ENCOUNTER 2018-12-25 22:48 | Emergency (ER) | payer BC, OTHER ==
[2018-12-25] MEDS ORDERED: IBUPROFEN 800 MG TAB PO STA (23:09)
[2018-12-25] MEDS ORDERED: PENICILLIN VK 500MG STARTER 4 TAB BTL PO STA (23:09)
--- NOTE | 2018-12-25 23:22 | ED ---
ENT HPI - General Source: patient Mode of arrival: ambulatory Limitations: no limitations <Jessika Riojas - Last Filed: 12/26/18 01:54> <Miesha Mcallister - Last Filed: 12/29/18 00:35> - General Chief complaint: Dental/Oral Stated complaint: Dental Pain Time Seen by Provider: 12/25/18 22:52 - History of Present Illness Initial comments: 23-year-old female who denies past medical history presenting today for chief complaint of left-sided tooth pain. Patient states she has both upper and lower left-sided dental pain. She denies facial swelling. Patient states she has been cracked teeth and black tea. She denies any fever, chills, night sweats. Patient denies a swelling of the neck, tongue or below tongue. Patient denies any trauma to the mouth or dentition. Remainder review of systems negative, patient denies any recent shortness of breath, chest pain, back pain, abdominal pain, nausea or vomiting, numbness or tingling, dysuria or hematuria, constipation or diarrhea, headaches or visual changes, or any other complaints. (Jessika Riojas) - Related Data Previous Rx's Medication Instructions Recorded Ibuprofen 800 mg PO Q8H PRN 7 Days #21 tablet 12/25/18 Penicillin V Potassium [Pen Vee K] 500 mg PO QID 7 Days #28 tablet 12/25/18 Allergies Allergy/AdvReac Type Severity Reaction Status Date / Time risperidone Allergy Unknown Verified 12/25/18 23:04 Review of Systems ROS Other: All systems not noted in ROS Statement are negative. <Jessika Riojas - Last Filed: 12/26/18 01:54> ROS Other: All systems not noted in ROS Statement are negative. <Miesha Mcallister - Last Filed: 12/29/18 00:35> ROS Statement: Those systems with pertinent positive or pertinent negative responses have been documented in the HPI. Past Medical History Past Medical History: No Reported History Additional Past Medical History / Comment(s): migraines History of Any Multi-Drug Resistant Organisms: None Reported Past Surgical History: Section Additional Past Surgical History / Comment(s): oral Past Anesthesia/Blood Transfusion Reactions: No Reported Reaction Past Psychological History: Anxiety, Bipolar Smoking Status: Current every day smoker Past Alcohol Use History: Rare Past Drug Use History: None Reported - Past Family History Mother Family Medical History: Congestive Heart Failure (CHF), CVA/TIA, Myocardial Infarction ([place]) Father Family Medical History: Hypertension <Jessika Riojas - Last Filed: 12/26/18 01:54> General Exam Limitations: no limitations <Jessika Riojas - Last Filed: 12/26/18 01:54> <Miesha Mcallister - Last Filed: 12/29/18 00:35> - General Exam Comments Initial Comments: General: The patient is awake and alert, in no distress, and does not appear acutely ill. Eye: Pupils are equal, round and reactive to light, extra-ocular movements are intact. No nystagmus. There is normal conjunctiva bilaterally. No signs of icterus. Ears, nose, mouth and throat: There are moist mucous membranes and no oral lesions. Patient's overall poor dentition, every tooth has decay, multiple cracked teeth. tooth #32 cracked. No areas of fluctuance. All teeth painful to percussion. No swelling below tongue or under the angle of the mandible. No anterior cervical lymphadenopathy. Neck: The neck is supple, there is no tenderness or JVD. Cardiovascular: There is a regular rate and rhythm. No murmur, rub or gallop is appreciated. Respiratory: Lungs are clear to auscultation, respirations are non-labored, breath sounds are equal. No wheezes, stridor, rales, or rhonchi. Musculoskeletal: Normal ROM, no tenderness. Strength 5/5. Sensation intact. Pulses equal bilaterally 2+. Neurological: A&O x 3. CN II-XII intact, There are no obvious motor or sensory deficits. Coordination appears grossly intact. Speech is normal. Skin: Skin is warm and dry and no rashes or lesions are noted. Psychiatric: Cooperative, appropriate mood & affect, normal judgment. (Jessika Riojas) Vital Signs 12/25/18 12/25/18 22:50 23:38 Temperature 97.8 F 98.6 F Pulse Rate 82 81 Respiratory 20 18 Rate Blood Pressure 122/80 116/77 O2 Sat by Pulse 100 98 Oximetry Medical Decision Making <Jessika Riojas - Last Filed: 12/26/18 01:54> <Miesha Mcallister - Last Filed: 12/29/18 00:35> - Medical Decision Making 23-year-old overall poor dentition. There is no evidence of obvious dental abscess. Differential diagnosis pulpitis versus periapical abscess. Patient prescribed Penicillin VK for infection prophylaxis/possible treatment. Patient denies any ALLERGIES to medications. No evidence concerning for Cleve angina at this time. No systemic sign of infection. Negative ROS is negative. Patient will be discharged with ibuprofen 800 for pain management. Patient is agreeable plan discharge. I discussed the importance of extraction of affected teeth. Patient verbalized understanding. Return parameters discussed at length the patient who verbalized understanding. (Jessika Riojas) I was available for consultation in the emergency department. The history and physical exam were done by the Midlevel Provider. Medical decision making was done by the Midlevel Provider. The Midlevel Provider did not contact me for this patient's care. I was not directly involved in this patient's care. (Miesha Mcallister) Disposition Is patient prescribed a controlled substance at d/c from ED?: No Time of Disposition: 23:21 <Jessika Riojas - Last Filed: 12/26/18 01:54> <Miesha Mcallister - Last Filed: 12/29/18 00:35> Clinical Impression: Pain, dental Disposition: HOME SELF-CARE Condition: Good Instructions (If sedation given, give patient instructions): Dental Abscess (ED ), Dental Caries (ED) Prescriptions: Ibuprofen 800 mg PO Q8H PRN 7 Days #21 tablet PRN Reason: Pain Penicillin V Potassium [Pen Vee K] 500 mg PO QID 7 Days #28 tablet Referrals: Ramya Brown MD [Primary Care Provider] - 1-2 days Bobby Moran DDS [STAFF PHYSICIAN] - 1-2 days
[2018-12-25 23:39] VITALS: BP 116/77; PULSE 81; RESP 18; TEMP 98.6
== END 2018-12-25 23:38 | disposition home or self-care (01) ==
LOC: EC 22:48
DX: K08.89 Other specified disorders of teeth and supporting structures (principal); F17.200 Nicotine dependence, unspecified, uncomplicated; Z88.8 Allergy status to other drugs, medicaments and biological substances
CPT/HCPCS: 99282

== ENCOUNTER 2019-07-27 21:39 | Emergency (ER) | payer BC, OTHER ==
[2019-07-27 21:52] VITALS: TEMP 97.8
[2019-07-27] MEDS ORDERED: SODIUM CHLORIDE 0.9% 500 ML 500 ML IV STA (22:26)
[2019-07-27] MEDS ORDERED: IBUPROFEN 600 MG TAB PO STA (22:26)
[2019-07-27 22:50] LABS: Appearance,Urine Clear (Clear); Basophils # (A) 0.1 k/uL (0-0.2); Basophils % (A) 1 %; Bilirubin,Urine Negative (Negative); Blood,Urine Negative (Negative); Color,Urine Light Yellow; Eosinophils % (A) 7 %; Glucose,Urine (UA) Negative (Negative); HCT 45.4 % (34.0-46.0); HGB 14.9 gm/dL (11.4-16.0); Ketones,Urine Negative (Negative); Leukocyte Esterase,Urine Negative (Negative); Lymphocytes # (A) 2.9 k/uL (1.0-4.8); Lymphocytes % (A) 20 %; MCHC 32.7 g/dL (31.0-37.0); MCV 94.7 fL (80.0-100.0); Mean Platelet Volume 8.5; Monocytes # (A) 0.5 k/uL (0-1.0); Monocytes % (A) 3 %; Neutrophils # (A) 10.4 k/uL (1.3-7.7); Neutrophils % (A) 69 %; Nitrite,Urine Negative (Negative); Platelet Count 243 k/uL (150-450); Protein,Urine Negative (Negative); RBC 4.79 m/uL (3.80-5.40); RDW 12.7 % (11.5-15.5); Specific Gravity,Urine 1.003 (1.001-1.035); Urobilinogen,Urine <2.0 mg/dL (<2.0)
[2019-07-27 22:59] LABS: ALT 10 U/L (9-52); AST 14 U/L (14-36); African American GFR (CKD) >90 (>60 ml/min/1.73 sqM); Albumin 3.3 g/dL (3.5-5.0); Alcohol <10 mg/dL; Alkaline Phosphatase 62 U/L (38-126); Anion Gap 8 mmol/L; Blood Urea Nitrogen 7 mg/dL (7-17); Calcium 9.1 mg/dL (8.4-10.2); Carbon Dioxide 21 mmol/L (22-30); Chloride 110 mmol/L (98-107); Glucose 95 mg/dL (74-99); Potassium 3.8 mmol/L (3.5-5.1); Sodium 139 mmol/L (137-145); Total Bilirubin 0.9 mg/dL (0.2-1.3); Total Protein 5.6 g/dL (6.3-8.2)
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
[2019-07-27 23:11] LABS: Partial Thromboplastin Time 26.6 sec (22.0-30.0); Prothrombin Time 10.9 sec (9.0-12.0)
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
--- NOTE | 2019-07-28 00:48 | CT ---
EXAM: CT Abdomen and Pelvis With Intravenous Contrast CLINICAL HISTORY: ITS.REASON CT Reason: Pain TECHNIQUE: Axial computed tomography images of the abdomen and pelvis with intravenous contrast. This CT exam was performed using one or more of the following dose reduction techniques: automated exposure control, adjustment of the mA and/or kV according to patient size, and/or use of iterative reconstruction technique. COMPARISON: No relevant prior studies available. FINDINGS: Lung bases: Unremarkable. No mass. No consolidation. ABDOMEN: Liver: Unremarkable. No mass. Gallbladder and bile ducts: No abnormal ductal dilation or stones. Pancreas: Unremarkable. No mass. No ductal dilation. Spleen: Unremarkable. No splenomegaly. Adrenals: Unremarkable. No mass. Kidneys and ureters: Unremarkable. No solid mass. No hydronephrosis. Stomach and bowel: No obstruction. No mucosal thickening. PELVIS: Appendix: No findings to suggest acute appendicitis. Bladder: Unremarkable. No mass. Reproductive: 3.3 cm right adnexal cyst. ABDOMEN and PELVIS: Intraperitoneal space: Unremarkable. No free air. No significant fluid collection. Bones/joints: No acute fracture. No dislocation. Soft tissues: Unremarkable. Vasculature: No abdominal aortic aneurysm. Lymph nodes: Unremarkable. No enlarged lymph nodes. IMPRESSION: 3.3 cm right adnexal cyst.
[2019-07-28 01:51] VITALS: BP 122/84; PULSE 83; RESP 18
== END 2019-07-28 01:59 | disposition home or self-care (01) ==
LOC: EC 21:39
DX: S30.1XXA Contusion of abdominal wall, initial encounter (principal); F41.9 Anxiety disorder, unspecified; F31.9 Bipolar disorder, unspecified; F17.200 Nicotine dependence, unspecified, uncomplicated; Z79.899 Other long term (current) drug therapy; Z88.8 Allergy status to other drugs, medicaments and biological substances; V03.90XA Pedestrian on foot injured in collision with car, pick-up truck or van, unspecified whether traffic or nontraffic accident, initial encounter; Y93.01 Activity, walking, marching and hiking; Y92.410 Unspecified street and highway as the place of occurrence of the external cause
CPT/HCPCS: 36415; 93005; 86900; 86901; 80053; 84484; 85025; 85610; 85730; 86850; 81003; 81025; 80320; 72170; 71045; 74177; 99284; 96360; Q9967

== ENCOUNTER 2019-11-25 09:37 | Emergency (ER) | payer BC, OTHER ==
[2019-11-25 10:12] VITALS: BP 149/91; PULSE 83; RESP 18; TEMP 97.9
--- NOTE | 2019-11-25 11:08 | ED ---
ENT HPI - General Chief complaint: Dental/Oral Stated complaint: Dental pain Time Seen by Provider: 11/25/19 10:58 Source: patient, RN notes reviewed, old records reviewed Mode of arrival: ambulatory Limitations: no limitations - History of Present Illness Initial comments: Patient is a 23-year-old female who presents emergency Department stay for evalu ation for concern for dental pain. She reports that she has poor dentition. She states that she does not have an appointment with a dentist at this time. Patient states that she's had no fevers or chills. She states that she's had worsening pain over the past 4 days. - Related Data Home Medications Medication Instructions Recorded Confirmed ALPRAZolam [Xanax] 0.25 mg PO HS PRN 07/27/19 07/27/19 Atomoxetine HCl [Strattera] 25 mg PO DAILY 07/27/19 07/27/19 SUMAtriptan SUCCINATE [Imitrex] 50 mg PO DAILY PRN 07/27/19 07/27/19 Previous Rx's Medication Instructions Recorded Penicillin V Potassium [Pen Vee K] 500 mg PO QID #40 tablet 11/25/19 Allergies Allergy/AdvReac Type Severity Reaction Status Date / Time risperidone Allergy Unknown Verified 07/27/19 22:38 Review of Systems ROS Statement: Those systems with pertinent positive or pertinent negative responses have been documented in the HPI. ROS Other: All systems not noted in ROS Statement are negative. Past Medical History Past Medical History: No Reported History Additional Past Medical History / Comment(s): migraines History of Any Multi-Drug Resistant Organisms: None Reported Past Surgical History: Section Additional Past Surgical History / Comment(s): oral Past Anesthesia/Blood Transfusion Reactions: No Reported Reaction Past Psychological History: Anxiety, Bipolar Smoking Status: Current every day smoker Past Alcohol Use History: Rare Past Drug Use History: None Reported - Past Family History Mother Family Medical History: Congestive Heart Failure (CHF), CVA/TIA, Myocardial Infarction ([place]) Father Family Medical History: Hypertension General Exam - General Exam Comments Initial Comments: 23 old female. No distress. Limitations: no limitations General appearance: alert, in no apparent distress Head exam: Present: atraumatic, normocephalic, normal inspection Eye exam: Present: normal appearance, PERRL, EOMI. Absent: scleral icterus, conjunctival injection, periorbital swelling ENT exam: Present: normal exam, mucous membranes moist, other (Patient has very poor dentition. Multiple caries. Missing teeth 7910. Patient has cavities over 13 and 14 and 15. No drainable abscess at this time.) Neck exam: Present: normal inspection. Absent: tenderness, meningismus, lymphadenopathy Respiratory exam: Present: normal lung sounds bilaterally. Absent: respiratory distress, wheezes, rales, rhonchi, stridor Cardiovascular Exam: Present: regular rate, normal rhythm, normal heart sounds. Absent: systolic murmur, diastolic murmur, rubs, gallop, clicks GI/Abdominal exam: Present: soft Extremities exam: Present: normal inspection, full ROM, normal capillary refill. Absent: tenderness, pedal edema, joint swelling, calf tenderness Back exam: Present: normal inspection Neurological exam: Present: alert, oriented X3, CN II-XII intact Psychiatric exam: Present: normal affect, normal mood Skin exam: Present: warm, dry, intact, normal color. Absent: rash Course Vital Signs 11/25/19 10:09 Temperature 97.9 F Pulse Rate 83 Respiratory 18 Rate Blood Pressure 149/91 O2 Sat by Pulse 100 Oximetry Medical Decision Making - Medical Decision Making 23-year-old female with severe poor dentition. His multiple missing teeth and multiple dental caries. She points of left upper dental pain. At this time patient's advised to be placed on penicillin, and will give Patient once her proper pain medication. Discussion is follow-up with dentist in proper dental hygiene. Disposition Clinical Impression: Dental caries, Pain, dental Disposition: HOME SELF-CARE Condition: Stable Instructions (If sedation given, give patient instructions): Toothache (ED) Additional Instructions: [facility] [id number] [place] [address] [phone] (existing clients only) For new clients: [phone] 1st consult: $50 (includes Xrays) Usually 30% less then private dentist for visits after. [employer] Have to pay $50 for Xrays anmd rest is covered. [phone] Prescriptions: Penicillin V Potassium [Pen Vee K] 500 mg PO QID #40 tablet Is patient prescribed a controlled substance at d/c from ED?: No Referrals: Ramya Brown MD [Primary Care Provider] - 1-2 days Time of Disposition: 11:09
[2019-11-25] MEDS ORDERED: ACET/COD 300 MG/30 MG STARTER PACK 6 TAB BTL PO STA (11:10)
[2019-11-25] MEDS ORDERED: IBUPROFEN 600 MG STARTER PACK 4 TAB BTL PO STA (11:10)
[2019-11-25] MEDS ORDERED: PENICILLIN VK 500MG STARTER 4 TAB BTL PO STA (11:10)
== END 2019-11-25 11:25 | disposition home or self-care (01) ==
LOC: EC 09:37
DX: K02.9 Dental caries, unspecified (principal); K08.409 Partial loss of teeth, unspecified cause, unspecified class; F17.200 Nicotine dependence, unspecified, uncomplicated; Z88.8 Allergy status to other drugs, medicaments and biological substances; Z79.899 Other long term (current) drug therapy
CPT/HCPCS: 99283

== ENCOUNTER 2019-12-08 18:19 | Emergency (ER) | payer BC, OTHER ==
[2019-12-08 19:06] VITALS: TEMP 98.3
[2019-12-08] MEDS ORDERED: ACET/COD 300 MG/30 MG STARTER PACK 6 TAB BTL PO STA (20:02)
[2019-12-08] MEDS ORDERED: PENICILLIN V POTASSIUM 250 MG TAB PO STA (20:02)
--- NOTE | 2019-12-08 20:03 | ED ---
ENT HPI - General Chief complaint: Dental/Oral Stated complaint: dental pain Time Seen by Provider: 12/08/19 19:46 Source: patient, RN notes reviewed, old records reviewed Mode of arrival: ambulatory Limitations: no limitations - History of Present Illness Initial comments: 24 year old female with dental caries and dental pain. She was seen on [place] for similar complaints. PAtient reports she finished antibiotics. PAtient states has no fevers or chills. She states that she has no trismus. She denies sorethroat or abdominal pain. MD complaint: tooth pain - Related Data Home Medications Medication Instructions Recorded Confirmed ALPRAZolam [Xanax] 0.25 mg PO HS PRN 07/27/19 07/27/19 Atomoxetine HCl [Strattera] 25 mg PO DAILY 07/27/19 07/27/19 SUMAtriptan SUCCINATE [Imitrex] 50 mg PO DAILY PRN 07/27/19 07/27/19 Previous Rx's Medication Instructions Recorded Penicillin V Potassium [Pen Vee K] 500 mg PO QID #40 tablet 11/25/19 Penicillin V Potassium [Pen Vee K] 500 mg PO QID #40 tablet 12/08/19 Allergies Allergy/AdvReac Type Severity Reaction Status Date / Time risperidone Allergy Unknown Verified 12/08/19 19:06 Review of Systems ROS Statement: Those systems with pertinent positive or pertinent negative responses have been documented in the HPI. ROS Other: All systems not noted in ROS Statement are negative. Past Medical History Past Medical History: No Reported History Additional Past Medical History / Comment(s): migraines History of Any Multi-Drug Resistant Organisms: None Reported Past Surgical History: Section Additional Past Surgical History / Comment(s): oral Past Anesthesia/Blood Transfusion Reactions: No Reported Reaction Past Psychological History: Anxiety, Bipolar Smoking Status: Current every day smoker Past Alcohol Use History: Rare Past Drug Use History: None Reported - Past Family History Mother Family Medical History: Congestive Heart Failure (CHF), CVA/TIA, Myocardial Infarction ([place]) Father Family Medical History: Hypertension General Exam - General Exam Comments Initial Comments: 24 year old female, no distress. Limitations: no limitations General appearance: alert, in no apparent distress Head exam: Present: atraumatic, normocephalic, normal inspection Eye exam: Present: normal appearance, PERRL, EOMI. Absent: scleral icterus, conjunctival injection, periorbital swelling ENT exam: Present: normal exam, mucous membranes moist, other (poor dentition, multiple decaying and rotten teeth) Neck exam: Present: normal inspection. Absent: tenderness, meningismus, lymphadenopathy Respiratory exam: Present: normal lung sounds bilaterally. Absent: respiratory distress, wheezes, rales, rhonchi, stridor Course Vital Signs 12/08/19 12/08/19 19:03 20:22 Temperature 98.3 F 98.3 F Pulse Rate 75 71 Respiratory 16 20 Rate Blood Pressure 129/74 132/77 O2 Sat by Pulse 98 99 Oximetry Medical Decision Making - Medical Decision Making 24 year old female with dental pain adn poor dentition. Patient at this time has no drainable abscess. PAtient appears in no distress. PAtient advised to restart antibiotics and needs to follow up with dentist. She has dental caries in each tooth and all decaying. Discussed all teeth need pulled. Discussed return parameters. Disposition Clinical Impression: Dental caries Disposition: HOME SELF-CARE Condition: Good Instructions (If sedation given, give patient instructions): Toothache (ED) Additional Instructions: [facility] [id number] [place] [address] [phone] (existing clients only) For new clients: [phone] 1st consult: $50 (includes Xrays) Usually 30% less then private dentist for visits after. [employer] Have to pay $50 for Xrays anmd rest is covered. [phone] Prescriptions: Penicillin V Potassium [Pen Vee K] 500 mg PO QID #40 tablet Is patient prescribed a controlled substance at d/c from ED?: No Referrals: Ramya Brown MD [Primary Care Provider] - 1-2 days Time of Disposition: 20:02
[2019-12-08 20:23] VITALS: BP 132/77; PULSE 71; RESP 20
== END 2019-12-08 20:23 | disposition home or self-care (01) ==
LOC: EC 18:19
DX: K02.9 Dental caries, unspecified (principal); F41.9 Anxiety disorder, unspecified; F31.9 Bipolar disorder, unspecified; F17.200 Nicotine dependence, unspecified, uncomplicated; Z79.899 Other long term (current) drug therapy; Z88.8 Allergy status to other drugs, medicaments and biological substances
CPT/HCPCS: 99283

== ENCOUNTER 2020-01-17 23:12 | Emergency (ER) | payer BC, OTHER ==
[2020-01-18] MEDS ORDERED: ACET/COD 300 MG/30 MG STARTER PACK 6 TAB BTL PO STA (00:02)
[2020-01-18] MEDS ORDERED: Acetaminophen-Codeine 300-30mg TAB PO STA (00:02)
[2020-01-18] MEDS ORDERED: PENICILLIN V POTASSIUM 250 MG TAB PO STA (00:02)
[2020-01-18] MEDS ORDERED: PENICILLIN VK 500MG STARTER 4 TAB BTL PO STA (00:02)
--- NOTE | 2020-01-18 00:02 | ED ---
ENT HPI - General Chief complaint: Dental/Oral Stated complaint: dental pain Time Seen by Provider: 01/17/20 23:45 Source: patient, RN notes reviewed, old records reviewed Mode of arrival: ambulatory Limitations: no limitations - History of Present Illness MD complaint: tooth pain -: days(s) Location: tooth # (right upper molars) Severity: moderate Severity scale (1-10): 6 Quality: stabbing, aching Consistency: constant Improves with: none Worsens with: eating Context- Dental: history of dental caries - Related Data Home Medications Medication Instructions Recorded Confirmed ALPRAZolam [Xanax] 0.25 mg PO HS PRN 07/27/19 07/27/19 Atomoxetine HCl [Strattera] 25 mg PO DAILY 07/27/19 07/27/19 SUMAtriptan SUCCINATE [Imitrex] 50 mg PO DAILY PRN 07/27/19 07/27/19 Previous Rx's Medication Instructions Recorded Penicillin V Potassium [Pen Vee K] 500 mg PO QID #40 tablet 11/25/19 Penicillin V Potassium [Pen Vee K] 500 mg PO QID #40 tablet 12/08/19 Allergies Allergy/AdvReac Type Severity Reaction Status Date / Time risperidone Allergy Unknown Verified 01/17/20 23:42 Review of Systems ROS Statement: Those systems with pertinent positive or pertinent negative responses have been documented in the HPI. ROS Other: All systems not noted in ROS Statement are negative. Past Medical History Past Medical History: No Reported History Additional Past Medical History / Comment(s): migraines History of Any Multi-Drug Resistant Organisms: None Reported Past Surgical History: Section Additional Past Surgical History / Comment(s): oral Past Anesthesia/Blood Transfusion Reactions: No Reported Reaction Past Psychological History: Anxiety, Bipolar Smoking Status: Current every day smoker Past Alcohol Use History: Rare Past Drug Use History: None Reported - Past Family History Mother Family Medical History: Congestive Heart Failure (CHF), CVA/TIA, Myocardial Infarction ([place]) Father Family Medical History: Hypertension General Exam Limitations: no limitations General appearance: alert, in no apparent distress Head exam: Present: atraumatic, normocephalic, normal inspection Eye exam: Present: normal appearance, PERRL, EOMI. Absent: scleral icterus, conjunctival injection, periorbital swelling ENT exam: Present: normal exam, mucous membranes moist Neck exam: Present: normal inspection. Absent: tenderness, meningismus, lymphadenopathy Respiratory exam: Present: normal lung sounds bilaterally. Absent: respiratory distress, wheezes, rales, rhonchi, stridor Cardiovascular Exam: Present: regular rate, normal rhythm, normal heart sounds. Absent: systolic murmur, diastolic murmur, rubs, gallop, clicks GI/Abdominal exam: Present: soft, normal bowel sounds. Absent: distended, tenderness, guarding, rebound, rigid Extremities exam: Present: normal inspection, full ROM, normal capillary refill. Absent: tenderness, pedal edema, joint swelling, calf tenderness Back exam: Present: normal inspection Neurological exam: Present: alert, oriented X3, CN II-XII intact Psychiatric exam: Present: normal affect, normal mood Skin exam: Present: warm, dry, intact, normal color. Absent: rash Course Vital Signs 01/17/20 23:40 Temperature 98.0 F Pulse Rate 90 Respiratory 20 Rate Blood Pressure 152/78 O2 Sat by Pulse 99 Oximetry Disposition Clinical Impression: Dental caries, Fracture of tooth Disposition: HOME SELF-CARE Condition: Good Instructions (If sedation given, give patient instructions): Dental Abscess (ED), Toothache (ED) Is patient prescribed a controlled substance at d/c from ED?: No Referrals: Ramya Brown MD [Primary Care Provider] - 1-2 days
[2020-01-18 00:17] VITALS: BP 122/72; PULSE 78; RESP 18; TEMP 98
== END 2020-01-18 00:17 | disposition home or self-care (01) ==
LOC: EC 23:12
DX: S02.5XXA Fracture of tooth (traumatic), initial encounter for closed fracture (principal); K02.9 Dental caries, unspecified; F17.200 Nicotine dependence, unspecified, uncomplicated; Z79.899 Other long term (current) drug therapy; Z88.8 Allergy status to other drugs, medicaments and biological substances
CPT/HCPCS: 99283

== ENCOUNTER 2020-02-15 | Emergency (ER) | payer BC, OTHER | END 2020-02-15 16:42 | disposition home or self-care (01) | CPT/HCPCS: 99282 ==

== ENCOUNTER 2022-09-16 15:29 | Emergency (ER) | payer BC, OTHER ==
[2022-09-16 16:29] VITALS: BP 127/73; PULSE 108; RESP 20; TEMP 98.3
[2022-09-16] MEDS ORDERED: DEXAMETHASONE SOD PHOSPHATE 10 MG/ML 1 ML VIAL IM STA (17:11)
--- NOTE | 2022-09-16 17:29 | ED ---
ENT HPI - General Chief complaint: ENT Stated complaint: Sore throat, Ear infection Time Seen by Provider: 09/16/22 16:29 Source: patient, RN notes reviewed Mode of arrival: ambulatory Limitations: no limitations - History of Present Illness Initial comments: This is a pleasant 26-year-old female presents emergency by complaining of bilateral ear pain as well as a sore throat which has been going on since last . He can spend about final. No fever. No neck stiffness. No skin rashes or lesions. Patient denies chance of . No headache, no fever or chills, no changes in vision or hearing, POSITIVE bilateral ear pain or difficulty with speech, no neck pain, no chest pain or shortness of breath, no abdominal pain, no nausea or vomiting, no changes in urination or bowel movements, no numbness or tingling, no extremity pain, no skin rashes or lesions. Past medical, surgical, social, and family history reviewed. MD complaint: sore throat, ear pain - Related Data Home Medications Medication Instructions Recorded Confirmed No Known Home Medications 09/16/22 09/16/22 Allergies Allergy/AdvReac Type Severity Reaction Status Date / Time risperidone AdvReac Leg Verified 09/16/22 17:55 numbness Review of Systems ROS Statement: Those systems with pertinent positive or pertinent negative responses have been documented in the HPI. ROS Other: All systems not noted in ROS Statement are negative. Past Medical History Past Medical History: No Reported History Additional Past Medical History / Comment(s): migraines History of Any Multi-Drug Resistant Organisms: None Reported Past Surgical History: Section Additional Past Surgical History / Comment(s): oral Past Anesthesia/Blood Transfusion Reactions: No Reported Reaction Past Psychological History: Anxiety, Bipolar Smoking Status: Current every day smoker Past Alcohol Use History: Rare Past Drug Use History: None Reported - Past Family History Mother Family Medical History: Congestive Heart Failure (CHF), CVA/TIA, Myocardial Infarction ([place]) Father Family Medical History: Hypertension General Exam - General Exam Comments Initial Comments: Patient does not appear to be ill or toxic. Appears very well hydrated. Capillary refill less than 2 seconds. No mottling. Limitations: no limitations General appearance: alert, in no apparent distress Head exam: Present: atraumatic, normocephalic, normal inspection Eye exam: Present: normal appearance, PERRL, EOMI. Absent: scleral icterus, conjunctival injection, periorbital swelling ENT exam: Present: normal exam, normal oropharynx, mucous membranes moist, normal external ear exam, other (Patient has mild retraction noted to both tympanic membranes. However good light reflex. No effusion. No perforation. No erythema.). Absent: mucous membranes dry Expanded Ear exam: Present: normal external inspection, auricular trauma Mouth exam: Present: normal external inspection, tongue normal. Absent: drooling, trismus, muffled voice, tongue elevation, laceration Teeth exam: Present: normal inspection Throat exam: tonsillar erythema (Mild), tonsillomegaly (Mild), tonsillar exudate (Minimal). negative: R peritonsillar mass, L peritonsillar mass Neck exam: Present: normal inspection, full ROM, lymphadenopathy. Absent: tenderness, meningismus Respiratory exam: Present: normal lung sounds bilaterally. Absent: respiratory distress, wheezes, rales, rhonchi, stridor, chest wall tenderness, accessory muscle use Cardiovascular Exam: Present: regular rate (84 by my auscultation and radial pulse), normal rhythm, normal heart sounds. Absent: systolic murmur, diastolic murmur, rubs, gallop, clicks GI/Abdominal exam: Present: soft, normal bowel sounds. Absent: distended, tenderness, guarding, rebound, rigid Extremities exam: Present: normal inspection, full ROM, normal capillary refill. Absent: tenderness, pedal edema, joint swelling, calf tenderness Back exam: Present: normal inspection Neurological exam: Present: alert, oriented X3, CN II-XII intact Psychiatric exam: Present: normal affect, normal mood Skin exam: Present: warm, dry, intact, normal color. Absent: rash Course Vital Signs 09/16/22 16:11 Temperature 98.3 F Pulse Rate 108 H Respiratory 20 Rate Blood Pressure 127/73 O2 Sat by Pulse 98 Oximetry Medical Decision Making - Medical Decision Making Patient presents with pharyngitis, bilateral ear pain likely related to inadequate eustachian tube function. COVID-19 testing a streptococcal testing ordered. Patient in no significant distress. Patient tested negative for COVID-19 and Streptococcus. Discussed the possibility of mononucleosis. Discussed conservative therapy. Patient with her regular physician. I think the patient is still having symptoms after 10 days she may consider mononucleosis test. Cautions discussed. Patient was told to return to the ER for any signs or symptoms worsen. Told to return immediately if any other problems arise. All questions answered. Treatment plan discussed. Patient in agreement Every effort has been made to ensure accuracy of this dictation. However, due to the limitations of electronic medical records and dictation devices, errors in charting still occur. Emergency Response Technician Dr. Rdz - Lab Data Lab Results 09/16/22 09/16/22 Range/Units 16:32 17:01 Coronavirus (PCR) Not Detected (Not Detectd) Group A Strep (PCR) NOT DETECTED (Not Detectd) Disposition Clinical Impression: Acute viral pharyngitis Disposition: HOME SELF-CARE Condition: Good Instructions (If sedation given, give patient instructions): Pharyngitis (ED) Additional Instructions: Use [id number] acetaminophen and/or ibuprofen for general discomfort. Follow-up with your regular physician as directed. Return to the ER immediately if any symptoms worsen, new symptoms arise, or any other problems develop. If you still have symptoms after 10 days, consider a test for mononucleosis. Is patient prescribed a controlled substance at d/c from ED?: No Referrals: Giancarlo An MD [Primary Care Provider] - 09/21/22 Time of Disposition: 18:02
== END 2022-09-16 18:21 | disposition home or self-care (01) ==
LOC: EC 15:29
DX: J02.9 Acute pharyngitis, unspecified (principal); F17.200 Nicotine dependence, unspecified, uncomplicated; Z20.822 Contact with and (suspected) exposure to COVID-19
CPT/HCPCS: 87651; 87635; 96372; 99283; J1100

== ENCOUNTER 2022-11-12 17:01 | Emergency (ER) | payer OTHER ==
[2022-11-12] MEDS ORDERED: OXYMETAZOLINE 0.05% NASL SPRAY 1 SPRAY BOTTLE NASAL STA (19:52)
--- NOTE | 2022-11-12 20:05 | ED ---
General Adult HPI - General Chief complaint: Upper Respiratory Infection Stated complaint: URI Time Seen by Provider: 11/12/22 19:38 Source: patient, RN notes reviewed Mode of arrival: ambulatory Limitations: no limitations - History of Present Illness Initial comments: 19-year-old female presents to the emergency Department with complaints of nasal congestion, cough, and sore throat, onset last night. Patient states her son has been sick recently, and also had close contact with a family member who tested positive for influenza. Patient states she does have a dry nonproductive cough. Has been taking anything to treat the symptoms. Reports no aggravating or alleviating factors. States congestion and cough interfered with her sleep last night. Denies fever, chills, shortness of breath, difficulty breathing, abdominal pain, nausea, vomiting, diarrhea, or dysuria. - Related Data Previous Rx's Medication Instructions Recorded Oseltamivir Phosphate 75 mg PO BID 5 Days #10 capsule 11/12/22 Allergies Allergy/AdvReac Type Severity Reaction Status Date / Time risperidone AdvReac Leg Verified 11/12/22 17:40 numbness Review of Systems ROS Statement: Those systems with pertinent positive or pertinent negative responses have been documented in the HPI. ROS Other: All systems not noted in ROS Statement are negative. Past Medical History Past Medical History: No Reported History Additional Past Medical History / Comment(s): migraines History of Any Multi-Drug Resistant Organisms: None Reported Past Surgical History: Section Additional Past Surgical History / Comment(s): oral Past Anesthesia/Blood Transfusion Reactions: No Reported Reaction Past Psychological History: Anxiety, Bipolar Smoking Status: Current every day smoker Past Alcohol Use History: Rare Past Drug Use History: None Reported - Past Family History Mother Family Medical History: Congestive Heart Failure (CHF), CVA/TIA, Myocardial Infarction ([place]) Father Family Medical History: Hypertension General Exam Limitations: no limitations (Well-developed, well-nourished female in no acute distress.) General appearance: alert, in no apparent distress ENT exam: Present: normal exam, normal oropharynx, mucous membranes moist, TM's normal bilaterally Neck exam: Present: full ROM, lymphadenopathy Respiratory exam: Present: normal lung sounds bilaterally. Absent: respiratory distress, wheezes, rales, rhonchi, stridor, chest wall tenderness Cardiovascular Exam: Present: regular rate, normal rhythm, normal heart sounds. Absent: systolic murmur, diastolic murmur, rubs, gallop, clicks GI/Abdominal exam: Present: soft, normal bowel sounds. Absent: distended, te nderness, guarding, rebound, rigid Neurological exam: Present: alert, oriented X3, CN II-XII intact Psychiatric exam: Present: normal affect, normal mood Skin exam: Present: warm, dry, intact, normal color. Absent: rash Course Vital Signs 11/12/22 17:39 Temperature 97.9 F Pulse Rate 107 H Respiratory 18 Rate Blood Pressure 118/80 O2 Sat by Pulse 98 Oximetry Medical Decision Making - Medical Decision Making This is a 26-year-old female who presents to the emergency department for evaluation of upper respiratory infection symptoms. Upon exam, patient is well- appearing and in no acute distress. Physical exam findings are unremarkable. Cepheid is positive for influenza A. She is given a dose of Tamiflu and Afrin while present in the emergency department. She will be discharged home with instructions to follow-up with her PCP for recheck. Discussed symptomatic management. Patient verbalizes understanding and agrees with this plan. Attending: [place] - Lab Data Lab Results 11/12/22 Range/Units 17:47 Influenza Type A (PCR) Detected A (Not Detectd) Influenza Type B (PCR) Not Detected (Not Detectd) RSV (PCR) Not Detected (Not Detectd) SARS-CoV-2 (PCR) Not Detected (Not Detectd) Disposition Clinical Impression: Influenza A Disposition: HOME SELF-CARE Condition: Stable Instructions (If sedation given, give patient instructions): Influenza (ED) Additional Instructions: Treat fever and body aches by alternating Tylenol and Motrin. Consider a vaporizer humidifier in the room and when she sleeps. Take Tamiflu with food if it makes you queasy. Use Afrin nasal spray for congestion. Follow-up with your PCP for a recheck in 48 hours if needed. Return to the emergency department with any new, worsening, or concerning symptoms. Prescriptions: Oseltamivir Phosphate 75 mg PO BID 5 Days #10 capsule Is patient prescribed a controlled substance at d/c from ED?: No Referrals: Giancarlo An MD [Primary Care Provider] - 1-2 days Time of Disposition: 20:05
[2022-11-12 20:24] VITALS: BP 124/75; PULSE 83; RESP 16; TEMP 97.6
== END 2022-11-12 20:24 | disposition home or self-care (01) ==
LOC: EC 17:01
DX: J10.1 Influenza due to other identified influenza virus with other respiratory manifestations (principal); F17.200 Nicotine dependence, unspecified, uncomplicated; Z20.822 Contact with and (suspected) exposure to COVID-19; Z88.8 Allergy status to other drugs, medicaments and biological substances
CPT/HCPCS: 87636; 99283

== ENCOUNTER 2022-11-20 21:12 | Emergency (ER) | payer OTHER ==
[2022-11-20 22:02] VITALS: TEMP 98
--- NOTE | 2022-11-20 23:01 | XR ---
EXAMINATION TYPE: XR chest 2V DATE OF EXAM: 11/20/2022 10:47 PM COMPARISON: Chest radiographs from 07/27/2019 TECHNIQUE: XR chest 2V Frontal and lateral views of the chest. CLINICAL INDICATION:Female, 26 years old with history of cough; FINDINGS: Lungs/Pleura: There is no evidence of pleural effusion, focal consolidation, or pneumothorax. Pulmonary vascularity: Unremarkable. Heart/mediastinum: Cardiomediastinal silhouette is unremarkable. Musculoskeletal: No acute osseous pathology. IMPRESSION: No acute cardiopulmonary disease/process.
--- NOTE | 2022-11-20 23:12 | ED ---
URI HPI - General Chief Complaint: Upper Respiratory Infection Stated Complaint: wants covid test Time Seen by Provider: 11/20/22 22:03 Source: patient Mode of arrival: ambulatory Limitations: no limitations - History of Present Illness Initial Comments: Patient is a 26-year-old female presenting for Covid test. Patient states that her mother recently had Covid Brandi Koo same house as the patient and her daughter. Patient's daughter tested positive for Covid at home today but the patient tested negative. She has a cough and congestion, however she states that she is also recovering from influenza. The chest pain, difficulty breathing, fever, chills, nausea, vomiting, abdominal pain, sinus pain or pressure, sore throat, difficulty swallowing, ear pain. Patient has also complaining of some left-sided lower jaw pain, she is a known dental caries to the area and is concerned for abscess. No headache, vision or hearing changes, neck pain or stiffness. - Related Data Previous Rx's Medication Instructions Recorded Oseltamivir Phosphate 75 mg PO BID 5 Days #10 capsule 11/12/22 Amoxic-Pot Clav 875-125Mg 1 tab PO Q12HR 7 Days #14 tab 11/20/22 [Augmentin 875-125] Benzonatate [Tessalon Perles] 100 mg PO TID PRN #10 capsule 11/20/22 Allergies Allergy/AdvReac Type Severity Reaction Status Date / Time risperidone AdvReac Leg Verified 11/12/22 17:40 numbness Review of Systems ROS Statement: Those systems with pertinent positive or pertinent negative responses have been documented in the HPI. ROS Other: All systems not noted in ROS Statement are negative. Past Medical History Past Medical History: No Reported History Additional Past Medical History / Comment(s): migraines History of Any Multi-Drug Resistant Organisms: None Reported Past Surgical History: Section Additional Past Surgical History / Comment(s): oral Past Anesthesia/Blood Transfusion Reactions: No Reported Reaction Past Psychological History: Anxiety, Bipolar Smoking Status: Current every day smoker Past Alcohol Use History: Rare Past Drug Use History: None Reported - Past Family History Mother Family Medical History: Congestive Heart Failure (CHF), CVA/TIA, Myocardial Infarction ([place]) Father Family Medical History: Hypertension General Exam Limitations: no limitations General appearance: alert, in no apparent distress Head exam: Present: atraumatic, normocephalic, normal inspection Eye exam: Present: normal appearance, PERRL, EOMI. Absent: scleral icterus, conjunctival injection, periorbital swelling ENT exam: Present: normal exam, mucous membranes moist Expanded Mouth exam: Present: tongue normal. Absent: drooling, trismus, muffled voice Teeth exam: Present: dental caries, gingival enlargement Throat exam: normal inspection Neck exam: Present: normal inspection, full ROM Respiratory exam: Present: normal lung sounds bilaterally. Absent: respiratory distress, wheezes, rales, rhonchi, stridor Cardiovascular Exam: Present: regular rate, normal rhythm, normal heart sounds. Absent: systolic murmur, diastolic murmur, rubs, gallop, clicks Neurological exam: Present: alert, oriented X3, CN II-XII intact Psychiatric exam: Present: normal affect, normal mood Skin exam: Present: warm, dry, intact, normal color. Absent: rash Course Vital Signs 11/20/22 11/20/22 21:59 23:28 Temperature 98 F Pulse Rate 100 82 Respiratory 20 16 Rate Blood Pressure 131/76 126/73 O2 Sat by Pulse 97 97 Oximetry Medical Decision Making - Medical Decision Making Patient is a 26-year-old female presenting for Covid test. She is also complaining of some dental tenderness on the left lower side. On physical examination her lungs are clear to auscultation, there is a large dental care he noted into the left lower side with some gingival enlargement. No brawny induration or trismus. Patient is negative for Covid. Chest x-ray shows no acute cardiopulmonary process. Patient will be treated for dental abscess with Augmentin. Since the patient's daughter is currently positive for Covid and her mother who lives with her recently had Covid, instructed the patient to behave as though she is currently contagious. Educated on quarantined guidelines and supportive treatment. Follow-up with dentist.Follow-up with PCP. Report back to ER with any new or worsening symptoms. Discussed return parameters and answered all questions. Patient conveyed verbal understanding and agreed to the plan. I discussed this case in detail with my attending Dr. Garcia - Lab Data Lab Results 11/20/22 Range/Units 22:13 Coronavirus (PCR) Not Detected (Not Detectd) Disposition Clinical Impression: Upper respiratory tract infection, Dental abscess Disposition: HOME SELF-CARE Condition: Good Instructions (If sedation given, give patient instructions): Upper Respiratory Infection (ED) Additional Instructions: Follow-up with PCP. Report back to ER with any new or worsening symptoms. Take Motrin and Tylenol as needed. Stay well-hydrated and get plenty of rest. Prescriptions: Amoxic-Pot Clav 875-125Mg [Augmentin 875-125] 1 tab PO Q12HR 7 Days #14 tab Benzonatate [Tessalon Perles] 100 mg PO TID PRN #10 capsule PRN Reason: Cough Is patient prescribed a controlled substance at d/c from ED?: No Referrals: Giancarlo An MD [Primary Care Provider] - 1-2 days Time of Disposition: 23:12
[2022-11-20 23:28] VITALS: BP 126/73; PULSE 82; RESP 16
== END 2022-11-20 23:28 | disposition home or self-care (01) ==
LOC: EC 21:12
DX: J06.9 Acute upper respiratory infection, unspecified (principal); K04.7 Periapical abscess without sinus; F41.9 Anxiety disorder, unspecified; F31.9 Bipolar disorder, unspecified; F17.200 Nicotine dependence, unspecified, uncomplicated; Z20.822 Contact with and (suspected) exposure to COVID-19; Z88.8 Allergy status to other drugs, medicaments and biological substances
CPT/HCPCS: 71046; 87635; 99283